=== PATIENT | female | born 1965 | race Caucasian/White ===

== ENCOUNTER 2022-08-20 16:20 | Outpatient (OUT) | payer MEDICAID, SELFPAY ==
--- NOTE | 2022-08-20 | XR_ITS ---
The [address] [address] Patient Name: MARCELINO IRENE MRN: [id number] date: 1965 Sex: F Assigned Patient Location: LAB Current Patient Location: Accession/Order Number: [id number] Exam Date: 08/20/2022 17:04 Report Date: 08/21/2022 18:55 At the request of: CHRISTIANA ORLANDO Procedure: XR shoulder LU min 2V EXAMINATION: XR shoulder LU min 2V HISTORY: MYALGIA ; bilateral shoulder pain, chronic COMPARISON: No relevant comparison available. FINDINGS: RIGHT FINDINGS: BONES: Skin surface marker projects over the acromioclavicular joint there are mild degenerative changes. Unremarkable glenohumeral joint. No fracture, dislocation, bone lesion. SOFT TISSUES: No visible soft tissue swelling. OTHER: Negative. LEFT FINDINGS: BONES: Skin surface marker projects over the acromioclavicular joint where there are mild degenerative changes. Unremarkable glenohumeral joint. No fracture, dislocation, or bone lesion. SOFT TISSUES: No visible soft tissue swelling. OTHER: Negative. XR/XR shoulder LU min 2V IMPRESSION: RIGHT CONCLUSION: Mild degenerative changes of acromioclavicular joint. LEFT CONCLUSION: Mild degenerative changes of the acromial clavicular joint. Electronically authenticated by: SUKUMAR CABALLERO Date: 08/21/2022 18:55
[2022-08-20 17:09] LABS: Erythrocyte Sedimentation Rate 22 mm/hr (<=30)
[2022-08-22 06:09] LABS: C-Reactive Protein, Cardiac 0.72 mg/L (0.00-3.00)
[2022-08-24 14:08] LABS: EBV Ab VCA, IgG >600.0 U/mL (0.0-17.9); EBV Ab VCA, IgM <36.0 U/mL (0.0-35.9); EBV Nuclear Antigen Ab, IgG >600.0 U/mL (0.0-17.9)
== END 2022-08-20 16:21 | disposition home or self-care (01) ==
PROVIDERS: PCP Specialist; Visit Provider Psychiatry & Neurology Neurology
DX: R53.83 Other fatigue (principal); M79.10 Myalgia, unspecified site; R11.0 Nausea; M35.9 Systemic involvement of connective tissue, unspecified; G31.84 Mild cognitive impairment of uncertain or unknown etiology; F03.90 Unspecified dementia, unspecified severity, without behavioral disturbance, psychotic disturbance, mood disturbance, and anxiety; R41.89 Other symptoms and signs involving cognitive functions and awareness; R41.3 Other amnesia; M41.30 Thoracogenic scoliosis, site unspecified; M31.6 Other giant cell arteritis; E78.49 Other hyperlipidemia; M25.512 Pain in left shoulder; M25.511 Pain in right shoulder
CPT/HCPCS: 36415; 73030; 85652; 86140; 86664; 86665

== ENCOUNTER 2023-05-28 13:34 | Outpatient (OUT) | payer MEDICARE, MEDICAID, SELFPAY ==
--- NOTE | 2023-05-28 13:38 | CT_ITS ---
The [address] [address] Patient Name: MARCELINO IRENE MRN: [id number] date: 1965 Sex: F Assigned Patient Location: CT Current Patient Location: Accession/Order Number: [id number] Exam Date: 05/28/2023 13:50 Report Date: 05/30/2023 04:28 At the request of: HIEN HENSLEY Procedure: CT lung screening low-dose EXAMINATION: CT lung screening low-dose HISTORY: Nicotine Dependence F17.210 COMPARISON: No relevant comparison available. TECHNIQUE: Axial, Coronal, and Sagittal images were created without the administration of IV contrast material. Dose reduction techniques were achieved by using automated exposure control and/or adjustment of mA and/or kV according to patient size and/or use of iterative reconstruction technique. FINDINGS: LUNGS: Mild emphysematous changes. Multiple 3-4 mm nodules scattered within the lungs, some calcified and some noncalcified, but favoring granulomas. No acute infiltrates. PLEURA: No mass, effusion, or pneumothorax. VASCULATURE: No abnormality. JUAN: Calcified lymph nodes favoring chronic granulomatous disease. MEDIASTINUM: Calcified lymph nodes. CARDIAC: No enlargement, pericardial thickening, or pericardial effusion. AORTA: No aneurysm or dissection. CHEST WALL: No mass or axillary adenopathy BONES: No bone lesion or fracture. LIMITED ABDOMEN: No suspicious findings. Limited images of the upper abdomen. OTHER: Negative. CT/CT lung screening low-dose IMPRESSION: 1. Lung-RADS 2- Benign Appearance or Behavior. Nodules with a very low likelihood of becoming a clinically active cancer due to size or lack of growth. Follow-up CT Chest in 1 year. Electronically authenticated by: SUKUMAR CABALLERO Date: 05/30/2023 04:28
--- NOTE | 2023-05-28 13:46 | MM_ITS ---
Patient Name: MARCELINO IRENE MR#: [id number] : 1965 Exam Date: 05/28/2023 Ordering Doctor: DR. HIEN HENSLEY . RADIOLOGY REPORT PROCEDURE: MM TOMOSYNTHESIS SCREENING BI COMPARISON: MG MAMM SCREEN 3D LU CAD, 04/26/2020. MG MAMM LU DIAG W CAD DIG, 01/08/2009. INDICATIONS: Screening Calculator Name NCI Breast Cancer Risk Assessment Tool 5 Year Breast Cancer Risk 1.20% Lifetime Breast Cancer Risk 6.70% Personal Breast Cancer No Personal Ovarian Cancer No Treatments None Family Cancers Brother with rabdomyosarcoma cancer at age ~45. LOCATION: [facility] BREAST COMPOSITION: The breasts are heterogeneously dense,which may obscure small masses. FINDINGS: DIAGNOSTIC CATEGORY 1--NEGATIVE. RIGHT BREAST: No significant suspicious finding. No significant change has occurred. LEFT BREAST: No significant suspicious finding. No significant change has occurred. RECOMMENDATIONS: ROUTINE MAMMOGRAM AND CLINICAL EVALUATION IN 12 MONTHS. PLEASE NOTE: A NORMAL MAMMOGRAM DOES NOT EXCLUDE THE POSSIBILITY OF BREAST CANCER. A CLINICALLY SUSPICIOUS PALPABLE LUMP SHOULD BE BIOPSIED. Dictated by: Pb Zhou M.D. on 05/28/2023 at 15:34 Approved by: Pb Zhou M.D. on 05/28/2023 at 15:44
== END 2023-05-28 13:35 | disposition home or self-care (01) ==
LOC: CT 13:34
PROVIDERS: PCP Family Medicine; Visit Provider Family Medicine
DX: Z12.31 Encounter for screening mammogram for malignant neoplasm of breast (principal); F17.210 Nicotine dependence, cigarettes, uncomplicated; Z80.8 Family history of malignant neoplasm of other organs or systems
CPT/HCPCS: 71271; 77063; 77067

== ENCOUNTER 2023-06-01 14:58 | Outpatient (OUT) | payer MEDICARE, MEDICAID, SELFPAY ==
--- NOTE | 2023-06-01 15:01 | MR_ITS ---
[address] [address] Patient Name: MARCELINO IRENE MRN: [id number] date: 1965 Sex: F Assigned Patient Location: MRI Current Patient Location: Accession/Order Number: [id number] Exam Date: 06/01/2023 15:10 Report Date: 06/02/2023 06:53 At the request of: CHRISTIANA ORLANDO Procedure: MR shoulder LT wo con EXAMINATION: MR shoulder LT wo con HISTORY: traumatic incomplete tear of rotator cuff S46.012D ; chronic left shoulder pain and left hand weakness COMPARISON: No relevant comparison available. TECHNIQUE: A variety of imaging planes and parameters were utilized for visualization of suspected pathology. Imaging was performed without or with contrast as indicated by examination type. FINDINGS: ROTATOR CUFF REGION CUFF TENDONS: A partial thickness tear involves the supraspinatus tendon. 13 x 6 x 9 mm cyst/fluid collection adjacent versus within the supraspinatus muscle at the musculotendinous junction. CUFF MUSCLES: Normal appearing muscles. DELTOID: Normal. No significant atrophy or tear. LONG BICEPS TENDON: Normal. No abnormal signal, attrition, or tear. LABRUM/BICEPS ANCHOR SUPERIOR: Suspected tear of the anterior superior labrum. INFERIOR: No visible tear or attrition. POSTERIOR: No posterior labrum abnormality. CAPSULE Normal. No visible capsular laxity or thickening. AC JOINT REGION AC JOINT: Moderate osteoarthropathy with mild-moderate narrowing of the underlying coracoacromial arch. AC LIGAMENTS: Normal acromioclavicular ligament. CC LIGAMENTS: Normal coracoclavicular ligaments. ACROMION: Normal horizontal (Type I) configuration. SUBACROMIAL BURSA: No significant effusion. HYALINE CARTILAGE: Normal. No visible cartilage narrowing or focal defect. OTHER BONES: Normal proximal humerus, glenoid, and coracoid. OTHER OBSERVATIONS: Negative. No other significant findings or glenohumeral effusion. MR/MR shoulder LT wo con IMPRESSION: 1. Partial tear the supraspinatus tendon. 2. 13 mm cystic fluid collection which appears to be within the supraspinatus muscle, but may be adjacent and causing mass effect, at the musculotendinous junction. 3. Suspected tear of the anterior superior labrum. Electronically authenticated by: SUKUMAR Hudson: 06/02/2023 06:53
== END 2023-06-01 14:59 | disposition home or self-care (01) ==
LOC: MRI 14:59
PROVIDERS: PCP Family Medicine; Visit Provider Psychiatry & Neurology Neurology
DX: S46.012D Strain of muscle(s) and tendon(s) of the rotator cuff of left shoulder, subsequent encounter (principal)
CPT/HCPCS: 73221

== ENCOUNTER 2023-10-25 17:33 | Emergency (ER) | payer MEDICARE, MEDICAID, SELFPAY ==
[2023-10-25 17:43] VITALS: BP 133/81; PULSE 92; TEMP 36.9; O2SAT 96; BMI 22.2
[2023-10-25 18:48] VITALS: BP 121/73; PULSE 86; TEMP 36.8; O2SAT 98
== END 2023-10-25 20:04 | disposition left against medical advice (07) ==
PROVIDERS: Emergency Provider Emergency Medicine; PCP Family Medicine
DX: Z53.21 Procedure and treatment not carried out due to patient leaving prior to being seen by health care provider (principal)

== ENCOUNTER 2024-05-16 15:29 | Outpatient (RCR) | payer MEDICARE, MEDICAID, SELFPAY | END 2024-06-10 15:08 | disposition home or self-care (01) | LOC: PT 15:29 | PROVIDERS: PCP Family Medicine | DX: M75.02 Adhesive capsulitis of left shoulder (principal); M79.602 Pain in left arm; M54.2 Cervicalgia | CPT/HCPCS: 97110; 97140; 97161 ==

== ENCOUNTER 2024-06-15 15:00 | Outpatient (OUT) | payer MEDICARE, MEDICAID, SELFPAY ==
--- NOTE | 2024-06-15 15:07 | XR_ITS ---
[address] [address] Patient Name: MARCELINO IRENE MRN: [id number] date: 1965 Sex: F Assigned Patient Location: [facility] Current Patient Location: [facility] Accession/Order Number: [id number] Exam Date: 06/15/2024 15:54 Report Date: 06/15/2024 15:54 At the request of: NELSON ZHU Procedure: XR chest 2V Chest 2 views CLINICAL HISTORY: Fatigue, Preprocedural Examination COMPARISON: Chest 03/27/2020 FINDINGS: Heart normal size. Lungs are clear. No free air. XR/XR chest 2V IMPRESSION: NO ACUTE CARDIOPULMONARY ABNORMALITY. Impression dictated by: Joshua Laguna Jr., D.OJustice 06/15/2024 3:54 PM Dictation Location: [place] [address] Electronically authenticated by: [id number] Y Date: 06/15/2024 15:54
== END 2024-06-15 15:01 | disposition home or self-care (01) ==
LOC: RAD 15:02
PROVIDERS: PCP Family Medicine; Visit Provider Nurse Practitioner
DX: Z01.818 Encounter for other preprocedural examination (principal); R53.83 Other fatigue
CPT/HCPCS: 71046

== ENCOUNTER 2024-08-17 13:25 | Outpatient (OUT) | payer MEDICARE, MEDICAID, SELFPAY ==
--- NOTE | 2024-08-17 14:00 | XR_ITS ---
[place] [id number] Patient Name: MARCELINO IRENE MRN: [id number] date: 1965 Sex: F Assigned Patient Location: LAB Current Patient Location: LAB Accession/Order Number: [id number] Exam Date: 08/17/2024 22:20 Report Date: 08/17/2024 22:21 At the request of: NELSON ZHU Procedure: XR chest 2V XR chest 2V 08/17/2024 2:11 PM SIGNS AND SYMPTOMS: ^Cough, Fatigue, Abnormal Labs PROTOCOL: Frontal and lateral radiographs of the chest COMPARISON: 06/15/2024 FINDINGS: The trachea is midline. The heart and mediastinal structures are within normal limits. The lung parenchyma is clear. The bony thorax is intact. XR/XR chest 2V IMPRESSION: No acute cardiopulmonary pathology. Impression dictated by: Raymon Damon M.D. 08/17/2024 10:21 PM Dictation Location: [facility] Electronically authenticated by: [id number] Y Date: 08/17/2024 22:21
[2024-08-17 14:03] LABS: Hematocrit 36.9 % (36.0-48.0); Hemoglobin 12.1 g/dL (12.0-16.0); Immature Granulocytes Abs Auto 0.03 10^3/uL (0.00-0.03); Immature Granulocytes Pct Auto 0.3 % (0.0-0.5); Lymphocytes Absolute Auto 2.8 10^3/uL (1.2-3.8); Mean Corpuscular HGB Conc 32.8 g/dL (29.9-35.2); Mean Corpuscular Hemoglobin 31.0 pg (26.7-34.0); Mean Corpuscular Volume 94.6 fL (81.0-99.0); Platelet Count 416 10^3/uL (150-450); Red Blood Count 3.90 10^6/uL (4.20-5.40); White Blood Count 9.9 10^3/uL (4.0-11.0)
[2024-08-17 14:42] LABS: Alanine Aminotransferase 20 U/L (14-59); Albumin Globulin Ratio 1.2; Albumin Level 3.4 g/dL (3.4-5.0); Alkaline Phosphatase 67 U/L (46-116); Anion Gap 15.1; Aspartate Amino Transferase 13 U/L (15-37); Blood Urea Nitrogen 18.0 mg/dL (7.0-18.0); Calcium 8.7 mg/dL (8.5-10.1); Carbon Dioxide 23.5 mmol/L (21.0-32.0); Chloride 111 mmol/L (98-107); Estimated GFR (African America >60 (>=60 mL/min/1.73m^2); Estimated GFR (Non-African Ame >60 (>=60 mL/min/1.73m^2); Globulin 2.9 g/dL; Glucose 91 mg/dL (74-106); Potassium 3.6 mmol/L (3.5-5.1); Sodium 146 mmol/L (136-145); Total Protein 6.3 g/dL (6.4-8.2)
[2024-08-17 15:13] LABS: Iron 57.0 ug/dL (50.0-170.0); Percent Iron Saturation 15.8 %; Total Iron Binding Capacity 361.0 ug/dL (250.0-450.0)
== END 2024-08-17 13:26 | disposition home or self-care (01) ==
PROVIDERS: PCP Family Medicine; Visit Provider Nurse Practitioner
DX: R53.83 Other fatigue (principal); R79.0 Abnormal level of blood mineral; R79.89 Other specified abnormal findings of blood chemistry; D64.9 Anemia, unspecified
CPT/HCPCS: 36415; 71046; 80053; 82728; 83540; 83550; 85025

== ENCOUNTER 2024-11-06 14:40 | Outpatient (OUT) | payer MEDICARE, MEDICAID, SELFPAY ==
--- OUTSIDE RECORDS SUMMARY | 2024-10-26 14:50 | XMS_ITS ---
Author Name Auto Generated Organization OHIP Support Name Relationship Address Phone JAMIL BEAL Next [place] [phone] JAY, [place] [address] + [phone] EMIGDIO, JAMIL Next of [facility], [place] [phone] JAY, [place] [address] + [phone] DISABLED Next of Kin Unknown Unavailable EMIGDIO, JAMIL Next of [facility], [place] [phone] EMIGDIO, JAMIL Next of [facility], [place] [phone] JAY, IRMA Next of [facility] [place] [address] + ~[phone] EMIGDIO, JAMIL Next of Kin [place] [phone] JAY, [place] [address] + ~[phone] DISABLED Next of Kin Unknown Unavailable EMIGDIO, JAMIL Next of Kin [place] [phone] DISABLED Next of Kin Unknown Unavailable EMIGDIO, JAMIL Next [place] [phone] DISABLED Next of Kin Unknown Unavailable EMIGDIO, JAMIL Next of Kin [place] [phone] DISABLED Next of Kin Unknown Unavailable EMIGDIO, JAMIL Next of [place] [phone] EMIGDIO, JAMIL Next [place] [phone] JAY, IRMA Next of Kin [facility] [place] [address] + [phone] EMIGDIO, JAMIL Next of Kin [place] [phone] JAY, IRMA Next of Kin [facility] [place] [address] + [phone] DISABLED Next of Kin Unknown Unavailable EMIGDIO, JAMIL Next of Kin [place] [phone] EMIGDIO, JAMIL Next of [place] [phone] JAY, IRMA Next of Kin [facility] [place] [address] + ~[phone] DISABLED Next of Kin Unknown Unavailable EMIGDIO, JAMIL Next of [place] [phone] DISABLED Next of Kin Unknown Unavailable EMIGDIO, JAMIL Next of Kin [place] [phone] EMIGDIO, JAMIL Next of [place] [phone] JAY, IRMA Next of Kin [facility] [place] [address] + ~[phone] EMIGDIO, JAMIL Next of Kin [place] [phone] JAY, IRMA Next of [facility] [place] [address] + ~[phone] IVY, KULWANT Next of Kin [address] [facility] [place] [address] + EMIGDIO, JAMIL Next of Kin [place] [phone] JAY, IRMA Next of [facility] [place] [address] + ~[phone] IVY, KULWANT Next of Kin [address] [facility] [place] [address] + EMIGDIO, JAMIL Next of Kin [place] [phone] JAY, IRMA Next of [facility] [place] [address] + ~[phone] IVY, KULWANT Next of [facility] [place] [address] + JAMIL BEAL Next of [place] [phone] JAYIRMA JOY Next of Henry [facility] [place] [address] + ~[phone] KULWANT IVY Next of Henry [address] [place] [address], [place] [address] + JAMIL BEAL Next of Henry [place] [phone] JAYIRMA JOY Next of Henry [facility] [place] [address] + ~[phone] DISABLED Next of Kin Unknown Unavailable JAMIL BEAL Next of Henry [place] [phone] IRMA [place] [address] [phone] Care Team Providers Care Electrical Systems Drafter Name Role Phone ROBYN HERNANDEZ Attending Unavailable ROBYN HERNANDEZ Attending Unavailable ROBYN HERNANDEZ Attending Unavailable GENERIC PROVIDER, NO ASSIGNED PCP Primary Care Unavailable ROBYN HERNANDEZ Attending Unavailable ROBYN HERNANDEZ Referring Unavailable ROBYN HERNANDEZ Attending Unavailable GENERIC PROVIDER, NO ASSIGNED PCP Primary Care Unavailable ROBYN HERNANDEZ Referring Unavailable GENERIC PROVIDER, NO ASSIGNED PCP Primary Care Unavailable Miguel Meyer Admitting Unavailable Miguel Meyer Attending Unavailable Feliz, Jennifer L Admitting Unavailable Feliz, Jennifer L Attending Unavailable Feliz, Jennifer L Attending Unavailable Feliz, Jennifer L Attending Unavailable Feliz, Jennifer L Attending Unavailable Feliz, Jennifer L Attending Unavailable Feliz, Jennifer L Attending Unavailable Feliz, Jennifer L Attending Unavailable Feliz, Jennifer L Attending Unavailable Feliz, Jennifer L Admitting Unavailable Feliz, Jennifer Stevenson Attending Unavailable RUBINA MENESES Attending Unavailab CHRISTIANA Prabhakar Attending Unavailable CHRISTIANA JASMINE Referring Unavailable CHRISTIANA JASMINE Attending Unavailable RUBINA MENESES Attending Unavailab RUBINA Peralta Referring Unavailab CHRISTIANA Prabhakar Attending Unavailable CHRISTIANA JASMINE Attending Unavailable RUBINA MENESES Attending Unavailab CHRISTIANA Prabhakar Attending Unavailable CHRISTIANA JASMINE Attending Unavailable RUBINA MENESES Attending Unavailab le PROBLEMS DATE TYPE CONDITION / CODE ATTENDING STATUS JESUS Rick 08/14/2024 Admitting Diagnosis Follow-up / FREETEXT() MARYROBYN [facility] 06/12/2024 Admitting Diagnosis Encounter for other preprocedural examination / Z01.818(ICD-10) [facility] Amb[facility] 05/08/2024 Admitting Diagnosis Adhesive capsulitis of left shoulder / M75.02(ICD-10) ARIK [facility] Amb[facility] 11/15/2023 Admitting Diagnosis Incomplete rotator cuff tear or rupture of left shoulder, not specified as traumatic / M75.112(ICD-10) [facility] Ambulatory PROCEDURES No Procedure Records Found RESULTS FAMILY MEDICINE OFFICE/CLINI C NOTE Observed: 10/13/2024 3:20 PM Status: F Source: [facility] Family Medicine Office/Clini c Note HPI Staff Miroslava is a 59 year old female presenting with abdominal pain Onset: started 3 days ago Cologaurd last summer Restarted iron 4 days ago Now her stomach does not hurt any more History of Present Illness pt presents today for abdominal pain. but it is now better Review of Systems PHQ Score Initial Depression Screen Score: 0 SCORE Physical Exam Vitals & Measurements T: 36.4 ???C(Temporal Artery) HR: 92(Peripheral) RR: 18 BP: 96/86 SpO2: 97% HT: 68 in HT: 172.6 cm WT: 151.237 lb WT: 68.6 kg BMI: 23.03 General: alert, no acute distress ENMT: oral mucosa moist, no pharyngeal erythema or exudate Cardiovascular: regular rate and rhythm, normal peripheral perfusion Respiratory: Lungs CTA, respirations non labored Extremities: no deformity, no trauma Neurological: oriented x 4, LOC appropriate for age, CN II-XII intact, motor strength equal & normal bilaterally, speech normal Assessment/Plan 1. Abdominal pain (R10.9: Unspecified abdominal pain) pt started taking iron 4 days ago and started having abdominal pain 3 days ago Ordered: mupirocin topical, 1 jodee, Topical, TID, 22 gram, Refill(s) 0, [employer] #72, 172.6, cm, 10/13/24 15:33:00 EDT, Height/Length Dosing, 68.6, kg, 10/13/24 15:33:00 EDT, Weight Dosing 2. 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 Jasmine. thye keep increasing the dose Ordered: mupirocin topical, 1 jodee, Topical, TID, 22 gram, Refill(s) 0, [employer] #72, 172.6, cm, 10/13/24 15:33:00 EDT, Height/Length Dosing, 68.6, kg, 10/13/24 15:33:00 EDT, Weight Dosing 3. Body mass index [BMI] 23.0-23.9, adult (Z68.23: Body mass index [BMI] 23.0- 23.9, adult) BMI educaiton 4. Smoker (F17.200: Nicotine dependence, unspecified, uncomplicated) consider not smoking 5. Fatigue (R53.83: Other fatigue) pt c/o severe fatigue. just had labs done at [facility]. will obtain those records. pt is thinking she may want a second opinion with neuro at [facility]. 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 Medications acyclovir 400 mg Tab, 400 mg= 1 tab(s), Oral, BID Adderall 30 mg oral tablet, 30 mg= 1 tab(s), Oral, BID Advair Diskus 500 mcg-50 mcg inhalation powder, See Instructions Albuterol (Eqv-ProAir HFA) 90 mcg/inh inhalation aerosol, Inhalation, q6hr baclofen 10 mg Tab, 10 mg= 1 tab(s), Oral, TID Biotene, Oral, BID Cymbalta 60 mg Cap-DR, 60 mg, Oral, BID diclofenac potassium 25 mg oral tablet, Oral, BID dicyclomine 10 mg Cap, 10 mg= 1 cap(s), Oral, QID ferrous sulfate 325 mg Tab, 325 mg= 1 tab(s), Oral, BID, 5 refills FLUoxetine 20 mg Cap, 40 mg= 2 cap(s), Oral, Daily lansoprazole 30 mg Cap-DR, 30 mg= 1 cap(s), Oral, Daily LORazepam 0.5 mg Tab, 0.5 mg= 1 tab(s), Oral, BID multivitamin mupirocin Top 2% Oint, 1 jodee, Topical, TID Nurtec ODT 75 mg oral tablet, disintegrating, See Instructions OTC iron +C promethazine 25 mg Tab, See Instructions thymamine TraMADol (Eqv-Ultram ER) 300 mg/24 hours oral tablet, extended release, 300 mg= 1 tab(s), Oral, Daily vitamin b, 0 Allergies Moderna COVID-19 (6m-5y) Bivalent Booster Vaccine PF (Unknown) flu vaccines (Unknown) Dilaudid (Unknown) codeine (Unknown) celecoxib (Unknown) sulfa drugs (Unknown) Social History Alcohol Never., 08/12/2024 Substance Abuse Never., 08/12/2024 Tobacco 4 or less cigarettes(less than 1/4 pack)/day in last 30 days Tobacco Use:. Former vaping or e-cigarette use Smokeless Tobacco Use:. Cigarettes, Started age 19.0 Years. Ready to change: Yes. Household tobacco concerns: Yes. Yes, 10/13/2024 Family History Dementia: Mother. Hypertension: Mother. Immunizations Vaccine Date Status SARS-CoV-2 (COVID-19) mRNA-1273 vaccine 03/20/2020 Recorded SARS-CoV-2 (COVID-19) mRNA-1273 vaccine 02/21/2020 Recorded measles/mumps/rubella virus vaccine 09/06/1996 Recorded Td(adult) unspecified formulation 08/28/1996 Recorded Result Comment: Electronical ly Signed By: Jennifer Heath.shasha\Date and Time Signed: 10/13/24 15:49 EDT PAP Collected: 08/25/2024 3:16 PM Status: F Source: [facility] TYPE CODE TESTS RESULT OUT OF RANGE REFERENCE UNITS LAB CD:[id number] ([facility]) HPV Aptima Negative Unknown Negative Result Comment: This nucleic acid amplification test detects fourteen high-risk HPV types (16,18,31,33,35,39,45,51,52,56,58,59,66,68) without differentiation. Performed at: [facility] [address] [facility], [place] [id number] MD Puneet YoungPerformed at: =G [facility] [address] [facility], [place] [id number] MD Puneet Young LAB CD:[id number] ([facility]) PAP Note Unknown Result Comment: TESTS RESUL T FLAG UNITS REF RANGE LAB Clinician Provided Cytology Information Source.............Endocervix No. of containers..01 ThinPrep Vial DIAGNOSIS: 01 NEGATIVE FOR INTRAEPITHELIAL LESION OR MALIGNANCY. Specimen adequacy: 01 Satisfactory for evaluation. Endocervical and/or squamous metaplastic cells (endocervical component) are present. Performed by: Elliot Travis, Circular Saw Operator (ASCP) . 01 Note: Note 01 The Pap smear is a screening test designed to aid in the detection of premalignant and malignant conditions of the uterine cervix. It is not a diagnostic procedure and should not be used as the sole means of detecting cervical cancer. Both false-positive and false-negative reports do occur. Test Methodology: Note 01 This liquid based ThinPrep(R) pap test was screened with the use of an image guided system. HPV Genotype Reflex Note 01 Criteria not met, HPV Genotype not performed. FLAG LEGEND: L-Low Normal,H-High Normal,LL-Alert Low,HH-Alert High <-Panic Low,>-Panic High,A-Abnormal,AA-Critical Abnormal Performed at: [address] [facility] [address] [address] Hannah Teixeira MD, LAB CD:[id number] ([facility]) Gynecological Body Site ENDOCERVIX Normal Performed By: #### [id number] #### [facility] [address] [place] [address] FAMILY MEDICINE OFFICE/CLINI C NOTE Observed: 08/25/2024 1:40 PM Status: F Source: [facility] Family Medicine Office/Clini c Note HPI Staff Miroslava is a 59 year old female presenting with Woman check up: Last pap: doesn't know Results of lap pap: NORMAL Where was it done: hx: # of pregnancies... 3 abortions... 1 live births... 1 living children...0 menstrual cycle (normal,heavy,ect): History of STD: no Do you want tested for STD today: no Vaginal discharge, odor, itching: no Self breast exam at home? Hx of breast, cervical or uterine cancer in the family: Hysterectomy no Mammogram she has to call back Refills needed none History of Present Illness pt presents today for well woman visit Review of Systems PHQ Score Initial Depression Screen Score: 0 SCORE Physical Exam Vitals & Measurements T: 36.4 ???C(Temporal Artery) HR: 84(Peripheral) RR: 20 BP: 108/68 SpO2: 97% HT: 172.6 cm HT: 68 in WT: 70.3 kg WT: 154.985 lb BMI: 23.6 General: Well developed, well nourished, in no acute distress Neck: Neck supple. No masses or palpable cervical nodes. Trachea midline. Thyroid without nodules, masses, tenderness, or enlargement Breast: No mass, nodule, discharge, or erythema bilaterally, and no axillary lymphadenopathy Lungs: Normal respiratory effort and clear to auscultation Cardio: Regular rate and rhythm, normal S1 and S2, no murmur, no rub Abdomen: Soft, non-distended, non-tender, normal bowel sounds x4 Gyno: normal external genitalia. Urethra no discharge. Vagina normal without lesions, no vaginal discharge. Cervix normal, without lesions. Uterus normal. No adnexal masses. Pap obtained Neurologic: Grossly normal Skin: Falkner, moist, no tenting Lymph Nodes: No cervical adenopathy, nodes normal Mental Status: Alert and oriented x3. Normal mood and affect Assessment/Plan 1. Encounter for annual routine gynecological examination (Z01.419: Encounter for gynecological examination (general) (routine) without abnormal findings) pt presents today for well woman visit. BSE discussed. pt to schedule mammogram at [facility]. dexa scan ordered. all questions answered. RTC as needed Ordered: Obtaining Pap Smear Q0091 Pelvic and Breast Exam G0101 2. Cervical cancer screening (Z12.4: Encounter for screening for malignant neoplasm of cervix) pap obtained Ordered: Obtaining Pap Smear Q0091 Pelvic and Breast Exam G0101 3. Post-menopause (Z78.0: Asymptomatic menopausal state) will order dexa scan. Ordered: BD Bone Density DEXA 4. Body mass index [BMI] 23.0-23.9, adult (Z68.23: Body mass index [BMI] 23.0- 23.9, adult) BMI education Ordered: BD Bone Density DEXA 5. Smoker (F17.200: Nicotine dependence, unspecified, uncomplicated) consider not smoking Ordered: BD Bone Density DEXA Follow-up No qualifying data available Problem List/Past Medical History Ongoing Acute stress disorder ADHD Body mass index [BMI] 23.0-23.9, adult Breast cancer screening other than mammogram Cervical cancer screening Cigarette nicotine dependence with nicotine-induced disorder Colon cancer screening Cough Degeneration of cervical intervertebral disc Depression with anxiety Derangement of knee Diverticulitis of large intestine EBV (Will-Horne virus) Encounter for annual routine gynecological examination Fatigue GERD (gastroesophageal reflux disease) High serum ferritin Left shoulder pain Low ferritin Low hemoglobin Major depressive disorder, recurrent episode, mild Migraine Neck pain Physical exam Post-menopause Pre-op exam Rib fractures Sciatica Screening for hyperlipidemia Skin infection Supraspinatus tendon rupture Well woman exam Historical BMI 24.0-24.9, adult BMI 25.0-25.9,adult Breast cancer screening Procedure/Surgical History Tonsillectomy and adenoidectomy (06/2001), Surgery. Medications acyclovir 400 mg Tab, 400 mg= 1 tab(s), Oral, BID Adderall 30 mg oral tablet, 30 mg= 1 tab(s), Oral, BID Advair Diskus 500 mcg-50 mcg inhalation powder, See Instructions Albuterol (Eqv-ProAir HFA) 90 mcg/inh inhalation aerosol, Inhalation, q6hr baclofen 10 mg Tab, 10 mg= 1 tab(s), Oral, TID Biotene, Oral, BID Cymbalta 60 mg Cap-DR, 60 mg, Oral, BID diclofenac potassium 25 mg oral tablet, Oral, BID dicyclomine 10 mg Cap, 10 mg= 1 cap(s), Oral, QID ferrous sulfate 325 mg Tab, 325 mg= 1 tab(s), Oral, BID, 5 refills FLUoxetine 20 mg Cap, 40 mg= 2 cap(s), Oral, Daily lansoprazole 30 mg Cap-DR, 30 mg= 1 cap(s), Oral, Daily LORazepam 0.5 mg Tab, 0.5 mg= 1 tab(s), Oral, BID multivitamin Nurtec ODT 75 mg oral tablet, disintegrating, See Instructions OTC iron +C promethazine 25 mg Tab, See Instructions thymamine TraMADol (Eqv-Ultram ER) 300 mg/24 hours oral tablet, extended release, 300 mg= 1 tab(s), Oral, Daily vitamin b, 0 Allergies Moderna COVID-19 (6m-5y) Bivalent Booster Vaccine PF (Unknown) flu vaccines (Unknown) Dilaudid (Unknown) codeine (Unknown) celecoxib (Unknown) sulfa drugs (Unknown) Social History Alcohol Never., 08/12/2024 Substance Abuse Never., 08/12/2024 Tobacco 5-9 cigarettes (between 1/4 to 1/2 pack)/day in last 30 days Tobacco Use:. Former vaping or e-cigarette use Smokeless Tobacco Use:. Cigarettes, Started age 19.0 Years. Ready to change: Yes. Household tobacco concerns: Yes. Yes, 08/25/2024 Family History Dementia: Mother. Hypertension: Mother. Immunizations Vaccine Date Status SARS-CoV-2 (COVID-19) mRNA-1273 vaccine 03/20/2020 Recorded SARS-CoV-2 (COVID-19) mRNA-1273 vaccine 02/21/2020 Recorded measles/mumps/rubella virus vaccine 09/06/1996 Recorded Td(adult) unspecified formulation 08/28/1996 Recorded Result Comment: Electronical ly Signed By: Jennifer Heath\.br\Date and Time Signed: 08/25/24 14:26 EDT AMBULATORY VISIT SUMMARY Observed: 08/25 1:40 PM Status: F Source: [facility] Ambulatory Visit Summary MIROSLAVA IRENE :1965 Visit Date:08/25/2024 Ambulatory Visit Instructions Your Diagnosis Encounter for annual routine gynecological examination Cervical cancer screening Post-menopause Body mass index [BMI] 23.0-23.9, adult Smoker Tests Performed BD Bone Density DEXA -- Results Pending -- Please visit your patient portal for your results or contact your primary care physician. Your Care Team Attending Physician - Jennifer Heath Primary Care Physician - Jennifer Heath This Is Your Medications List Misc Prescription (vitamin b) Non-Formulary Medication (OTC iron +C) Non-Formulary Medication (multivitamin) Non-Formulary Medication (thymamine) acyclovir (acyclovir 400 mg Tab) albuterol (Albuterol (Eqv-ProAir HFA) 90 mcg/inh inhalation aerosol) amphetamine-dextroamphetamine (Adderall 30 mg oral tablet) baclofen (baclofen 10 mg Tab) diclofenac (diclofenac potassium 25 mg oral tablet) dicyclomine (dicyclomine 10 mg Cap) duloxetine (Cymbalta 60 mg Cap-DR) ferrous sulfate (ferrous sulfate 325 mg Tab) fluoride topical (Biotene) fluoxetine (FLUoxetine 20 mg Cap) fluticasone-salmeterol (Advair Diskus 500 mcg-50 mcg inhalation powder) lansoprazole (lansoprazole 30 mg Cap-DR) lorazepam (LORazepam 0.5 mg Tab) promethazine (promethazine 25 mg Tab) rimegepant (Nurtec ODT 75 mg oral tablet, disintegrating) tramadol (TraMADol (Eqv-Ultram ER) 300 mg/24 hours oral tablet, extended release) Procedures Performed Tonsillectomy and adenoidectomy (06/2001), Surgery. Discharge Vitals Temperature (Temporal Artery) 36.4 ???C Heart Rate (Peripheral) 84 Respiratory Rate 20 Blood Pressure 108/68 Height 172.6 cm Height 68 in Weight 70.3 kg Weight 154.985 lb BMI 23.6 What to do next Scheduled Follow-Up Appointments Wednesday 2:30 PM EDT With: Where: [facility] Wednesday 2:20 PM EDT With: Jennifer Heath Where: [address] [address] 2:30 PM EDT With: Where: [address] [address]- Medications What How Much When Why Instructions Unchanged acyclovir (acyclovir 400 mg Tab) 1 Tablets By Mouth 2 times a day Unchanged albuterol (Albuterol (Eqv-ProAir HFA) 90 mcg/ inh inhalation aerosol) Inhalation Every 6 hours Unchanged amphetamine-dextroamphetamine (Adderall 30 mg oral tablet) 1 Tablets By Mouth 2 times a day Unchanged baclofen (baclofen 10 mg Tab) 1 Tablets By Mouth 3 times a day as needed Unchanged diclofenac (diclofenac potassium 25 mg oral tablet) By Mouth 2 times a day Unchanged dicyclomine (dicyclomine 10 mg Cap) 1 Capsules By Mouth 4 times a day as needed Unchanged duloxetine (Cymbalta 60 mg Pritesh-DR) 60 Milligram By Mouth 2 times a day Unchanged ferrous sulfate (ferrous sulfate 325 mg Tab) 1 Tablets By Mouth 2 times a day Pre-op exam Fatigue Low hemoglobin Screening for hyperlipidemia Supraspinatus tendon rupture Left shoulder pain Major depressive disorder, recurrent episode, mild BMI 24.0-24.9, adult Unchanged fluoride topical (Biotene) By Mouth 2 times a day Unchanged fluoxetine (FLUoxetine 20 mg Cap) 2 Capsules By Mouth Every day Unchanged fluticasone-salmeterol (Advair Diskus 500 mcg-50 mcg inhalation powder) See instructions use twice a day Unchanged lansoprazole (lansoprazole 30 mg Cap-DR) 1 Capsules By Mouth Every day Unchanged lorazepam (LORazepam 0.5 mg Tab) 1 Tablets By Mouth 2 times a day as needed Unchanged Misc Prescription (vitamin b) 0 Unchanged Non-Formulary Medication (multivitamin) Unchanged Non-Formulary Medication (OTC iron +C) Unchanged Non-Formulary Medication (thymamine) Unchanged promethazine (promethazine 25 mg Tab) See instructions use prn when active migraine Unchanged rimegepant (Nurtec ODT 75 mg oral tablet, disintegrating) See instructions Use as directed allow tablet to dissolve on tongue Unchanged tramadol (TraMADol (Eqv-Ultram ER) 300 mg/ 24 hours oral tablet, extended release) 1 Tablets By Mouth Every day Allergies Moderna COVID-19 (6m-5y) Bivalent Booster Vaccine PF (Unknown) flu vaccines (Unknown) Dilaudid (Unknown) codeine (Unknown) celecoxib (Unknown) sulfa drugs (Unknown) Problems Ongoing - Any problem that you are currently receiving treatment for. Acute stress disorder ADHD Body mass index [BMI] 23.0-23.9, adult Breast cancer screening other than mammogram Cervical cancer screening Cigarette nicotine dependence with nicotine-induced disorder Colon cancer screening Cough Degeneration of cervical intervertebral disc Depression with anxiety Derangement of knee Diverticulitis of large intestine EBV (Will-Horne virus) Encounter for annual routine gynecological examination Fatigue GERD (gastroesophageal reflux disease) High serum ferritin Left shoulder pain Low ferritin Low hemoglobin Major depressive disorder, recurrent episode, mild Migraine Neck pain Physical exam Post-menopause Pre-op exam Rib fractures Sciatica Screening for hyperlipidemia Skin infection Supraspinatus tendon rupture Well woman exam Historical - Any problem that you are no longer receiving treatment for. BMI 24.0-24.9, adult BMI 25.0-25.9,adult Breast cancer screening Patient Survey You may receive a survey via text or e-mail asking about your office visit. Please share your experience with us by completing your survey. We appreciate your feedback and thank you for choosing us for your care. Patient Portal You may access all of your results and other medical record information on our secure patient portal. If you are not signed up for this yet, please contact [employer] at [phone] to get signed up today. Language Information Language assistance services are available as needed. AMBULATORY VISIT SUMMARY Observed: 08/15 2:20 PM Status: F Source: [facility] Ambulatory Visit Summary MIROSLAVA IRENE :1965 Visit Date:08/15/2024 Ambulatory Visit Instructions Your Diagnosis Fatigue Low ferritin High serum ferritin Low hemoglobin Cough Tests Performed Chest XR 2 Views -- Results Pending -- Please visit your patient portal for your results or contact your primary care physician. Your Care Team Attending Physician - Jennifer Heath Primary Care Physician - Jennifer Heath This Is Your Medications List Misc Prescription (vitamin b) Non-Formulary Medication (OTC iron +C) Non-Formulary Medication (multivitamin) Non-Formulary Medication (thymamine) acyclovir (acyclovir 400 mg Tab) albuterol (Albuterol (Eqv-ProAir HFA) 90 mcg/inh inhalation aerosol) amphetamine-dextroamphetamine (Adderall 30 mg oral tablet) baclofen (baclofen 10 mg Tab) diclofenac (diclofenac potassium 25 mg oral tablet) dicyclomine (dicyclomine 10 mg Cap) duloxetine (Cymbalta 60 mg Cap-DR) ferrous sulfate (ferrous sulfate 325 mg Tab) fluoride topical (Biotene) fluoxetine (FLUoxetine 20 mg Cap) fluticasone-salmeterol (Advair Diskus 500 mcg-50 mcg inhalation powder) lansoprazole (lansoprazole 30 mg Cap-DR) lorazepam (LORazepam 0.5 mg Tab) promethazine (promethazine 25 mg Tab) rimegepant (Nurtec ODT 75 mg oral tablet, disintegrating) tramadol (TraMADol (Eqv-Ultram ER) 300 mg/24 hours oral tablet, extended release) Procedures Performed Tonsillectomy and adenoidectomy (06/2001), Surgery. Discharge Vitals Temperature (Temporal Artery) 36.4 ???C Heart Rate (Peripheral) 98 Respiratory Rate 20 Blood Pressure 112/68 Height 172.6 cm Height 68 in Weight 68.8 kg Weight 151.678 lb BMI 23.09 What to do next Scheduled Follow-Up Appointments Wednesday 1:40 PM EDT With: Jennifer Heath Where: [address] [id number]- Wednesday 2:30 PM EDT With: Where: [facility] Wednesday 2:20 PM EDT With: Jennifer Heath Where: [address] [address]25 2:30 PM EDT With: Where: [address] [id number]- Medications What How Much When Why Instructions Unchanged acyclovir (acyclovir 400 mg Tab) 1 Tablets By Mouth 2 times a day Unchanged albuterol (Albuterol (Eqv-ProAir HFA) 90 mcg/ inh inhalation aerosol) Inhalation Every 6 hours Unchanged amphetamine-dextroamphetamine (Adderall 30 mg oral tablet) 1 Tablets By Mouth 2 times a day Unchanged baclofen (baclofen 10 mg Tab) 1 Tablets By Mouth 3 times a day as needed Unchanged diclofenac (diclofenac potassium 25 mg oral tablet) By Mouth 2 times a day Unchanged dicyclomine (dicyclomine 10 mg Cap) 1 Capsules By Mouth 4 times a day as needed Unchanged duloxetine (Cymbalta 60 mg Cap-DR) 60 Milligram By Mouth 2 times a day Unchanged ferrous sulfate (ferrous sulfate 325 mg Tab) 1 Tablets By Mouth 2 times a day Pre-op exam Fatigue Low hemoglobin Screening for hyperlipidemia Supraspinatus tendon rupture Left shoulder pain Major depressive disorder, recurrent episode, mild BMI 24.0-24.9, adult Unchanged fluoride topical (Biotene) By Mouth 2 times a day Unchanged fluoxetine (FLUoxetine 20 mg Cap) 2 Capsules By Mouth Every day Unchanged fluticasone-salmeterol (Advair Diskus 500 mcg-50 mcg inhalation powder) See instructions use twice a day Unchanged lansoprazole (lansoprazole 30 mg Cap-DR) 1 Capsules By Mouth Every day Unchanged lorazepam (LORazepam 0.5 mg Tab) 1 Tablets By Mouth 2 times a day as needed Unchanged Misc Prescription (vitamin b) 0 Unchanged Non-Formulary Medication (multivitamin) Unchanged Non-Formulary Medication (OTC iron +C) Unchanged Non-Formulary Medication (thymamine) Unchanged promethazine (promethazine 25 mg Tab) See instructions use prn when active migraine Unchanged rimegepant (Nurtec ODT 75 mg oral tablet, disintegrating) See instructions Use as directed allow tablet to dissolve on tongue Unchanged tramadol (TraMADol (Eqv-Ultram ER) 300 mg/ 24 hours oral tablet, extended release) 1 Tablets By Mouth Every day Allergies Moderna COVID-19 (6m-5y) Bivalent Booster Vaccine PF (Unknown) flu vaccines (Unknown) Dilaudid (Unknown) codeine (Unknown) celecoxib (Unknown) sulfa drugs (Unknown) Problems Ongoing - Any problem that you are currently receiving treatment for. Acute stress disorder ADHD Body mass index [BMI] 23.0-23.9, adult Breast cancer screening other than mammogram Cigarette nicotine dependence with nicotine-induced disorder Colon cancer screening Cough Degeneration of cervical intervertebral disc Depression with anxiety Derangement of knee Diverticulitis of large intestine EBV (Will-Horne virus) Fatigue GERD (gastroesophageal reflux disease) High serum ferritin Left shoulder pain Low ferritin Low hemoglobin Major depressive disorder, recurrent episode, mild Migraine Neck pain Physical exam Pre-op exam Rib fractures Sciatica Screening for hyperlipidemia Skin infection Supraspinatus tendon rupture Historical - Any problem that you are no longer receiving treatment for. BMI 24.0-24.9, adult BMI 25.0-25.9,adult Breast cancer screening Patient Survey You may receive a survey via text or e-mail asking about your office visit. Please share your experience with us by completing your survey. We appreciate your feedback and thank you for choosing us for your care. Patient Portal You may access all of your results and other medical record information on our secure patient portal. If you are not signed up for this yet, please contact [facility] at [phone] to get signed up today. Language Information Language assistance services are available as needed. FAMILY MEDICINE OFFICE/CLINI C NOTE Observed: 08/15/2024 2:20 PM Status: F Source: [facility] Family Medicine Office/Clini c Note HPI Staff Miroslava is a 59 year old female presenting for follow up Labs to check iron? Wants mammogram order sent to [facility] Has bruising on back, noticed when she had injections Has been feeling very fatigued due to autoimmune disorder flare up (Will blackmon) states that she feels horrible all the time Sees [place] in [place]. Has lab tests in [facility] History of Present Illness pt presents today to follow up on anemia Review of Systems PHQ Score Initial Depression Screen Score: 1 SCORE Physical Exam Vitals & Measurements T: 36.4 ???C(Temporal Artery) HR: 98(Peripheral) RR: 20 BP: 112/68 SpO2: 99% HT: 68 in HT: 172.6 cm WT: 151.678 lb WT: 68.8 kg BMI: 23.09 General: alert, no acute distress ENMT: oral mucosa moist, no pharyngeal erythema or exudate Cardiovascular: regular rate and rhythm, normal peripheral perfusion Respiratory: Lungs CTA, respirations non labored Extremities: no deformity, no trauma Neurological: oriented x 4, LOC appropriate for age, CN II-XII intact, motor strength equal & normal bilaterally, speech normal Assessment/Plan 1. Fatigue (R53.83: Other fatigue) pt c/o severe fatigue. has been taking iron. Dr. Jasmine also ordered other labs including Will blackmon titers. RTC 3 months Ordered: CBC w/ Auto Diff Comprehensive Metabolic Panel Ferritin Iron Level TIBC Calculated XR Chest 2 Views 2. Low ferritin (R79.0: Abnormal level of blood mineral) labs ordered. Ordered: CBC w/ Auto Diff Comprehensive Metabolic Panel Ferritin Iron Level TIBC Calculated XR Chest 2 Views 3. High serum ferritin (R79.89: Other specified abnormal findings of blood chemistry) labs ordered Ordered: CBC w/ Auto Diff Comprehensive Metabolic Panel Ferritin Iron Level TIBC Calculated XR Chest 2 Views 4. Low hemoglobin (D64.9: Anemia, unspecified) labs ordered Ordered: CBC w/ Auto Diff Comprehensive Metabolic Panel Ferritin Iron Level TIBC Calculated XR Chest 2 Views 5. Cough (R05.9: Cough, unspecified) chest x ray ordered Ordered: XR Chest 2 Views Follow-up No qualifying data available Problem List/Past Medical History Ongoing Acute stress disorder ADHD Body mass index [BMI] 23.0-23.9, adult Breast cancer screening other than mammogram Cigarette nicotine dependence with nicotine-induced disorder Colon cancer screening Cough Degeneration of cervical intervertebral disc Depression with anxiety Derangement of knee Diverticulitis of large intestine EBV (Will-Horne virus) Fatigue GERD (gastroesophageal reflux disease) High serum ferritin Left shoulder pain Low ferritin Low hemoglobin Major depressive disorder, recurrent episode, mild Migraine Neck pain Physical exam Pre-op exam Rib fractures Sciatica Screening for hyperlipidemia Skin infection Supraspinatus tendon rupture Historical BMI 24.0-24.9, adult BMI 25.0-25.9,adult Breast cancer screening Procedure/Surgical History Tonsillectomy and adenoidectomy (06/2001), Surgery. Medications acyclovir 400 mg Tab, 400 mg= 1 tab(s), Oral, BID Adderall 30 mg oral tablet, 30 mg= 1 tab(s), Oral, BID Advair Diskus 500 mcg-50 mcg inhalation powder, See Instructions Albuterol (Eqv-ProAir HFA) 90 mcg/inh inhalation aerosol, Inhalation, q6hr baclofen 10 mg Tab, 10 mg= 1 tab(s), Oral, TID Biotene, Oral, BID Cymbalta 60 mg Cap-DR, 60 mg, Oral, BID diclofenac potassium 25 mg oral tablet, Oral, BID dicyclomine 10 mg Cap, 10 mg= 1 cap(s), Oral, QID ferrous sulfate 325 mg Tab, 325 mg= 1 tab(s), Oral, BID, 5 refills FLUoxetine 20 mg Cap, 40 mg= 2 cap(s), Oral, Daily lansoprazole 30 mg Cap-DR, 30 mg= 1 cap(s), Oral, Daily LORazepam 0.5 mg Tab, 0.5 mg= 1 tab(s), Oral, BID multivitamin Nurtec ODT 75 mg oral tablet, disintegrating, See Instructions OTC iron +C promethazine 25 mg Tab, See Instructions thymamine TraMADol (Eqv-Ultram ER) 300 mg/24 hours oral tablet, extended release, 300 mg= 1 tab(s), Oral, Daily vitamin b, 0 Allergies Moderna COVID-19 (6m-5y) Bivalent Booster Vaccine PF (Unknown) flu vaccines (Unknown) Dilaudid (Unknown) codeine (Unknown) celecoxib (Unknown) sulfa drugs (Unknown) Social History Alcohol Never., 08/12/2024 Substance Abuse Never., 08/12/2024 Tobacco 5-9 cigarettes (between 1/4 to 1/2 pack)/day in last 30 days Tobacco Use:. Former vaping or e-cigarette use Smokeless Tobacco Use:. Cigarettes, Started age 19.0 Years. Ready to change: Yes. Household tobacco concerns: Yes. Yes, 08/15/2024 Family History Dementia: Mother. Hypertension: Mother. Immunizations Vaccine Date Status SARS-CoV-2 (COVID-19) mRNA-1273 vaccine 03/20/2020 Recorded SARS-CoV-2 (COVID-19) mRNA-1273 vaccine 02/21/2020 Recorded measles/mumps/rubella virus vaccine 09/06/1996 Recorded Td(adult) unspecified formulation 08/28/1996 Recorded Result Comment: Electronical ly Signed By: Jennifer Heath\.br\Date and Time Signed: 08/15/24 15:34 EDT PATIENT EDUCATION Observed: 08/02/2024 4:02 PM Status: C Source: [facility] Patient Education Gastroenterology Heartburn Heartburn is a type of pain or discomfort that can happen in the throat or chest. It is often described as a burning pain. It may also cause a bad, acid-like taste in the mouth. Heartburn may feel worse when you lie down or bend over, and it is often worse at night. Heartburn may be caused by stomach contents that move back up into the esophagus (reflux). Follow these instructions at home: Eating and drinking ??? Avoid certain foods and drinks as told by your health care provider. This may include: ? Coffee and tea, with or without caffeine. ? Drinks that contain alcohol. ? Energy drinks and sports drinks. ? Carbonated drinks or sodas. ? Chocolate and cocoa. ? Peppermint and mint flavorings. ? Garlic and onions. ? Horseradish. ? Spicy and acidic foods, including peppers, chili powder, darby powder, vinegar, hot sauces, and barbecue sauce. ? Love fruit juices and citrus fruits, such as oranges, diane, and limes. ? Tomato-based foods, such as red sauce, chili, salsa, and pizza with red sauce. ? Fried and fatty foods, such as donuts, kenyan fries, potato chips, and high- fat dressings. ? High-fat meats, such as hot dogs and fatty cuts of red and white meats, such as rib eye steak, sausage, ham, and rosas. ? High-fat dairy items, such as whole milk, butter, and cream cheese. ??? Eat small, frequent meals instead of large meals. ??? Avoid drinking large amounts of liquid with your meals. ??? Avoid eating meals during the 2?3 hours before bedtime. ??? Avoid lying down right after you eat. ??? Do not exercise right after you eat. Lifestyle ??? If you are overweight, reduce your weight to an amount that is healthy for you. Ask your health care provider for guidance about a safe weight loss goal. ??? Do not use any products that contain nicotine or tobacco. These products include cigarettes, chewing tobacco, and vaping devices, such as e-cigarettes. These can make symptoms worse. If you need help quitting, ask your health care provider. ??? Wear loose-fitting clothing. Do not wear anything tight around your waist that causes pressure on your abdomen. ??? Raise (elevate) the head of your bed about 6 inches (15 cm) when you sleep. You can use a wedge to do this. ??? Try to reduce your stress, such as with yoga or meditation. If you need help reducing stress, ask your health care provider. Medicines ??? Take raab-dhk-ktbwggt and prescription medicines only as told by your health care provider. ??? Do not take aspirin or NSAIDs, such as ibuprofen, unless your health care provider told you to do so. ??? Stop medicines only as told by your health care provider. If you stop taking some medicines too quickly, your symptoms may get worse. General instructions ??? Pay attention to any changes in your symptoms. ??? Keep all follow-up visits. This is important. Contact a health care provider if: ??? You have new symptoms. ??? You have unexplained weight loss. ??? You have difficulty swallowing, or it hurts to swallow. ??? You have wheezing or a persistent cough. ??? Your symptoms do not improve with treatment. ??? You have frequent heartburn for more than 2 weeks. Get help right away if: ??? You suddenly have pain in your arms, neck, jaw, teeth, or back. ??? You suddenly feel sweaty, dizzy, or light-headed. ??? You have chest pain or shortness of breath. ??? You vomit and your vomit looks like blood or coffee grounds. ??? Your stool is bloody or black. These symptoms may represent a serious problem that is an emergency. Do not wait to see if the symptoms will go away. Get medical help right away. Call your local emergency services (911 in the [place] Do not drive yourself to the hospital. Summary ??? Heartburn is a type of pain or discomfort that can happen in the throat or chest. It is often described as a burning pain. It may also cause a bad, acid-like taste in the mouth. ??? Avoid certain foods and drinks as told by your health care provider. ??? Take ibir-bvp-xslutyc and prescription medicines only as told by your health care provider. Do not take aspirin or NSAIDs, such as ibuprofen, unless your health care provider told you to do so. ??? Contact a health care provider if your symptoms do not improve or they get worse. This information is not intended to replace advice given to you by your health care provider. Make sure you discuss any questions you have with your health care provider. Document Revised: 07/31/2020 Document Reviewed: 07/31/2020 [employer] Patient Education ? 2023 [employer].Mental and Behavioral Health Attention Deficit Hyperactivity Disorder, Adult Attention deficit hyperactivity disorder (ADHD) is a mental health disorder that starts during childhood. For many people with ADHD, the disorder continues into the adult years. Treatment can help you manage your symptoms. There are three main types of ADHD: ??? Inattentive. With this type, adults have difficulty paying attention. This may affect cognitive abilities. ??? Hyperactive-impulsive. With this type, adults have a lot of energy and have difficulty controlling their behavior. ??? Combination type. Some people may have symptoms of both types. What are the causes? The exact cause of ADHD is not known. Most experts believe a person's genes and environment possibly contribute to ADHD. What increases the risk? The following factors may make you more likely to develop this condition: ??? Having a first-degree relative such as a parent, brother, or sister, with the condition. ??? Being born before 37 weeks of (prematurely) or at a low weight. ??? Being born to a mother who smoked tobacco or drank alcohol during . ??? Having experienced a brain injury. ??? Being exposed to lead or other toxins in the womb or early in life. What are the signs or symptoms? Symptoms of this condition depend on the type of ADHD. Symptoms of the inattentive type include: ??? Difficulty paying attention or following instructions. ??? Often making simple mistakes. ??? Being disorganized. ??? Avoiding tasks that require time and attention. ??? Losing and forgetting things. Symptoms of the hyperactive-impulsive type include: ??? Restlessness. ??? Talking out of turn, interrupting others, or talking too much. ??? Difficulty with: ? Sitting still. ? Feeling motivated. ? Relaxing. ? Waiting in line or waiting for a turn. People with the combination type have symptoms of both of the other types. In adults, this condition may lead to certain problems, such as: ??? Keeping jobs. ??? Performing tasks at work. ??? Having stable relationships. ??? Being on time or keeping to a schedule. How is this diagnosed? This condition is diagnosed based on your current symptoms and your history of symptoms. The diagnosis can be made by a health care provider such as a primary care provider or a mental health housekeeper child care. Your health care provider may use a symptom checklist or a behavior rating scale to evaluate your symptoms. Your health care provider may also want to talk with people who have observed your behaviors throughout your life. How is this treated? This condition can be treated with medicines and behavior therapy. Medicines may be the best option to reduce impulsive behaviors and improve attention. Your health care provider may recommend: ??? Stimulant medicines. These are the most common medicines used for adult ADHD. They affect certain chemicals in the brain (neurotransmitters) and improve your ability to control your symptoms. ??? A non-stimulant medicine. These medicines can also improve focus, attention, and impulsive behavior. It may take weeks to months to see the effects of this medicine. Counseling and behavioral management are also important for treating ADHD. Counseling is often used along with medicine. Your health care provider may suggest: ??? Cognitive behavioral therapy (CBT). This type of therapy teaches you to replace negative thoughts and actions with positive thoughts and actions. When used as part of ADHD treatment, this therapy may also include: ? Coping strategies for organization, time management, impulse control, and stress reduction. ? Mindfulness and meditation training. ??? Behavioral management. You may work with a math coach who is specially trained to help people with ADHD manage and organize activities and function more effectively. Follow these instructions at home: Medicines ??? Take jgbi-qyz-gyzkkle and prescription medicines only as told by your health care provider. ??? Talk with your health care provider about the possible side effects of your medicines and how to manage them. Alcohol use ??? Do not drink alcohol if: ? Your health care provider tells you not to drink. ? You are , may be , or are planning to become . ??? If you drink alcohol: ? Limit how much you use to: ? 0?1 drink a day for women. ? 0?2 drinks a day for men. ? Know how much alcohol is in your drink. In the [place] one drink equals one 12 oz bottle of beer (355 mL), one 5 oz glass of wine (148 mL), or one 1? oz glass of hard liquor (44 mL). Lifestyle ??? Do not use illegal drugs. ??? Get enough sleep. ??? Eat a healthy diet. ??? Exercise regularly. Exercise can help to reduce stress and anxiety. General instructions ??? Learn as much as you can about adult ADHD, and work closely with your health care providers to find the treatments that work best for you. ??? Follow the same schedule each day. ??? Use reminder devices like notes, calendars, and phone apps to stay on time and organized. ??? Keep all follow-up visits. Your health care provider will need to monitor your condition and adjust your treatment over time. Where to find more information A health care provider may be able to recommend resources that are available online or over the phone. You could start with: ??? Attention Deficit Disorder Association (ADDA): add.org ??? National [facility] [employer] [facility] (NIMH): nimh.nih.gov Contact a health care provider if: ??? Your symptoms continue to cause problems. ??? You have side effects from your medicine, such as: ? Repeated muscle twitches, coughing, or speech outbursts. ? Sleep problems. ? Loss of appetite. ? Dizziness. ? Unusually fast heartbeat. ? Stomach pains. ? Headaches. ??? You are struggling with anxiety, depression, or substance abuse. Get help right away if: ??? You have a severe reaction to a medicine. This symptom may be an emergency. Get help right away. Call 911. ??? Do not wait to see if the symptom will go away. ??? Do not drive yourself to the hospital. Take one of these steps if you feel like you may hurt yourself or others, or have thoughts about taking your own life: ??? Go to your nearest emergency room. ??? Call 911. ??? Call the National Suicide Prevention Lifeline at or 533. This is open 24 hours a day ??? Text the Crisis Text Line at 907064. Summary ??? ADHD is a mental health disorder that starts during childhood and often continues into your adult years. ??? The exact cause of ADHD is not known. Most experts believe genetics and environmental factors contribute to ADHD. ??? There is no cure for ADHD, but treatment with medicine, cognitive behavioral therapy, or behavioral management can help you manage your condition. This information is not intended to replace advice given to you by your health care provider. Make sure you discuss any questions you have with your health care provider. Document Revised: 05/15/2022 Document Reviewed: 05/15/2022 [employer] Patient Education ? 2023 [employer]Managing Depression, Adult Depression is a mental health condition that affects your thoughts, feelings, and actions. Being diagnosed with depression can bring you relief if you did not know why you have felt or behaved a certain way. It could also leave you feeling overwhelmed. Finding ways to manage your symptoms can help you feel more positive about your future. How to manage lifestyle changes Being depressed is difficult. Depression can increase the level of everyday stress. Stress can make depression symptoms worse. You may believe your symptoms cannot be managed or will never improve. However, there are many things you can try to help manage your symptoms. There is hope. Managing stress Stress is your body's reaction to life changes and events, both good and bad. Stress can add to your feelings of depression. Learning to manage your stress can help lessen your feelings of depression. Try some of the following approaches to reducing your stress (stress reduction techniques): ??? Listen to music that you enjoy and that inspires you. ??? Try using a meditation jodee or take a meditation class. ??? Develop a practice that helps you connect with your spiritual self. Walk in nature, pray, or go to a place of rastafari. ??? Practice deep breathing. To do this, inhale slowly through your nose. Pause at the top of your inhale for a few seconds and then exhale slowly, letting yourself relax. Repeat this three or four times. ??? Practice yoga to help relax and work your muscles. Choose a stress reduction technique that works for you. These techniques take time and practice to develop. Set aside 5?15 minutes a day to do them. Therapists can offer training in these techniques. Do these things to help manage stress: ??? Keep a journal. ??? Know your limits. Set healthy boundaries for yourself and others, such as saying no when you think something is too much. ??? Pay attention to how you react to certain situations. You may not be able to control everything, but you can change your reaction. ??? Add humor to your life by watching funny movies or shows. ??? Make time for activities that you enjoy and that relax you. ??? Spend less time using electronics, especially at night before bed. The light from screens can make your brain think it is time to get up rather than go to bed. Medicines Medicines, such as antidepressants, are often a part of treatment for depression. ??? Talk with your pharmacist or health care provider about all the medicines, supplements, and herbal products that you take, their possible side effects, and what medicines and other products are safe to take together. ??? Make sure to report any side effects you may have to your health care provider. Relationships Your health care provider may suggest family therapy, couples therapy, or individual therapy as part of your treatment. How to recognize changes Everyone responds differently to treatment for depression. As you recover from depression, you may start to: ??? Have more interest in doing activities. ??? Feel more hopeful. ??? Have more energy. ??? Eat a more regular amount of food. ??? Have better mental focus. It is important to recognize if your depression is not getting better or is getting worse. The symptoms you had in the beginning may return, such as: ??? Feeling tired. ??? Eating too much or too little. ??? Sleeping too much or too little. ??? Feeling restless, agitated, or hopeless. ??? Trouble focusing or making decisions. ??? Having unexplained aches and pains. ??? Feeling irritable, angry, or aggressive. If you or your family members notice these symptoms coming back, let your health care provider know right away. Follow these instructions at home: Activity ??? Try to get some form of exercise each day, such as walking. ??? Try yoga, mindfulness, or other stress reduction techniques. ??? Participate in group activities if you are able. Lifestyle ??? Get enough sleep. ??? Cut down on or stop using caffeine, tobacco, alcohol, and any other harmful substances. ??? Eat a healthy diet that includes plenty of vegetables, fruits, whole grains, low-fat dairy products, and lean protein. Limit foods that are high in solid fats, added sugar, or salt (sodium). General instructions ??? Take ywug-hah-awgjcnr and prescription medicines only as told by your health care provider. ??? Keep all follow-up visits. It is important for your health care provider to check on your mood, behavior, and medicines. Your health care provider may need to make changes to your treatment. Where to find support Talking to others Friends and family members can be sources of support and guidance. Talk to trusted friends or family members about your condition. Explain your symptoms and let them know that you are working with a health care provider to treat your depression. Tell friends and family how they can help. Finances ??? Find mental health providers that fit with your financial situation. ??? Talk with your health care provider if you are worried about access to food, housing, or medicine. ??? Call your insurance company to learn about your co-pays and prescription plan. Where to find more information You can find support in your area from: ??? Anxiety and Depression Association of [place] (ADAA): adaa.org ??? Mental Health [place]: mentalhealthamerica.net ??? National [place] on Mental Illness: elisabet.org Contact a health care provider if: ??? You stop taking your antidepressant medicines, and you have any of these symptoms: ? Nausea. ? Headache. ? Light-headedness. ? Chills and body aches. ? Not being able to sleep (insomnia). ??? You or your friends and family think your depression is getting worse. Get help right away if: ??? You have thoughts of hurting yourself or others. Get help right away if you feel like you may hurt yourself or others, or have thoughts about taking your own life. Go to your nearest emergency room or: ??? Call 911. ??? Call the National Suicide Prevention Lifeline at or 069. This is open 24 hours a day. ??? Text the Crisis Text Line at 802883. This information is not intended to replace advice given to you by your health care provider. Make sure you discuss any questions you have with your health care provider. Document Revised: 06/02/2022 Document Reviewed: 06/02/2022 [employer] Patient Education ? 2023 [employer].Managing Anxiety, Adult After being diagnosed with anxiety, you may be relieved to know why you have felt or behaved a certain way. You may also feel overwhelmed about the treatment ahead and what it will mean for your life. With care and support, you can manage your anxiety. How to manage lifestyle changes Understanding the difference between stress and anxiety Although stress can play a role in anxiety, it is not the same as anxiety. Stress is your body's reaction to life changes and events, both good and bad. Stress is often caused by something external, such as a deadline, test, or competition. It normally goes away after the event has ended and will last just a few hours. But, stress can be ongoing and can lead to more than just stress. Anxiety is caused by something internal, such as imagining a terrible outcome or worrying that something will go wrong that will greatly upset you. Anxiety often does not go away even after the event is over, and it can become a long-term (chronic) worry. Lowering stress and anxiety Talk with your health care provider or a counselor to learn more about lowering anxiety and stress. They may suggest tension-reduction techniques, such as: ??? Music. Spend time creating or listening to music that you enjoy and that inspires you. ??? Mindfulness-based meditation. Practice being aware of your normal breaths while not trying to control your breathing. It can be done while sitting or walking. ??? Centering prayer. Focus on a word, phrase, or sacred image that means something to you and brings you peace. ??? Deep breathing. Expand your stomach and inhale slowly through your nose. Hold your breath for 3?5 seconds. Then breathe out slowly, letting your stomach muscles relax. ??? Self-talk. Learn to notice and spot thought patterns that lead to anxiety reactions. Change those patterns to thoughts that feel peaceful. ??? Muscle relaxation. Take time to tense muscles and then relax them. Choose a tension-reduction technique that fits your lifestyle and personality. These techniques take time and practice. Set aside 5?15 minutes a day to do them. Specialized therapists can offer counseling and training in these techniques. The training to help with anxiety may be covered by some insurance plans. Other things you can do to manage stress and anxiety include: ??? Keeping a stress diary. This can help you learn what triggers your reaction and then learn ways to manage your response. ??? Thinking about how you react to certain situations. You may not be able to control everything, but you can control your response. ??? Making time for activities that help you relax and not feeling guilty about spending your time in this way. ??? Doing visual imagery. This involves imagining or creating mental pictures to help you relax. ??? Practicing yoga. Through yoga poses, you can lower tension and relax. Medicines Medicines for anxiety include: ??? Antidepressant medicines. These are usually prescribed for long-term daily control. ??? Anti-anxiety medicines. These may be added in severe cases, especially when panic attacks occur. When used together, medicines, psychotherapy, and tension-reduction techniques may be the most effective treatment. Relationships Relationships can play a big part in helping you recover. Spend more time connecting with trusted friends and family members. Think about going to couples counseling if you have a partner, taking family education classes, or going to family therapy. Therapy can help you and others better understand your anxiety. How to recognize changes in your anxiety Everyone responds differently to treatment for anxiety. Recovery from anxiety happens when symptoms lessen and stop interfering with your daily life at home or work. This may mean that you will start to: ??? Have better concentration and focus. Worry will interfere less in your daily thinking. ??? Sleep better. ??? Be less irritable. ??? Have more energy. ??? Have improved memory. Try to recognize when your condition is getting worse. Contact your provider if your symptoms interfere with home or work and you feel like your condition is not improving. Follow these instructions at home: Activity ??? Exercise. Adults should: ? Exercise for at least 150 minutes each week. The exercise should increase your heart rate and make you sweat (moderate-intensity exercise). ? Do strengthening exercises at least twice a week. ??? Get the right amount and quality of sleep. Most adults need 7?9 hours of sleep each night. Lifestyle ??? Eat a healthy diet that includes plenty of vegetables, fruits, whole grains, low-fat dairy products, and lean protein. ? Do not eat a lot of foods that are high in fats, added sugars, or salt (sodium). ??? Make choices that simplify your life. ??? Do not use any products that contain nicotine or tobacco. These products include cigarettes, chewing tobacco, and vaping devices, such as e-cigarettes. If you need help quitting, ask your provider. ??? Avoid caffeine, alcohol, and certain gcuv-luu-kbbjvby cold medicines. These may make you feel worse. Ask your pharmacist which medicines to avoid. General instructions ??? Take goco-ehs-ffcxodf and prescription medicines only as told by your provider. ??? Keep all follow-up visits. This is to make sure you are managing your anxiety well or if you need more support. Where to find support You can get help and support from: ??? Self-help groups. ??? Online and community organizations. ??? A trusted spiritual leader. ??? Couples counseling. ??? Family education classes. ??? Family therapy. Where to find more information You may find that joining a support group helps you deal with your anxiety. The following sources can help you find counselors or support groups near you: ??? Mental Health [place]: mentalhealthamerica.net ??? Anxiety and Depression Association of [place] (ADAA): adaa.org ??? National [place] on Mental Illness ([place]IS[place]ET): elisabet.org Contact a health care provider if: ??? You have a hard time staying focused or finishing tasks. ??? You spend many hours a day feeling worried about everyday life. ??? You are very tired because you cannot stop worrying. ??? You start to have headaches or often feel tense. ??? You have chronic nausea or diarrhea. Get help right away if: ??? Your heart feels like it is racing. ??? You have shortness of breath. ??? You have thoughts of hurting yourself or others. Get help right away if you feel like you may hurt yourself or others, or have thoughts about taking your own life. Go to your nearest emergency room or: ??? Call 911. ??? Call the National Suicide Prevention Lifeline at or 909. This is open 24 hours a day. ??? Text the Crisis Text Line at 413938. This information is not intended to replace advice given to you by your health care provider. Make sure you discuss any questions you have with your health care provider. Document Revised: 11/03/2022 Document Reviewed: 05/18/2021 [employer] Patient Education ? 2023 [employer]Neurology Chronic Migraine Headache A migraine headache is throbbing pain that is usually on one side of the head. It can also cause other symptoms. A migraine is called a chronic migraine if it happens at least 15 days in a month for more than 3 months. Talk with your doctor about what things may bring on (trigger) your migraines. What are the causes? The exact cause of a migraine is not known. This condition may be brought on or caused by: ??? Smoking. ??? Some medicines, such as control or some blood pressure medicines. ??? Certain substances in some foods or drinks. ??? Foods and drinks, such as: ? Cheese. ? Chocolate. ? Alcohol. ? Caffeine. Other things that may bring on a migraine include: ??? Periods. ??? Stress. ??? Getting too much or too little sleep. ??? Feeling tired (fatigue). ??? Bright lights or loud noises. ??? Certain smells. ??? Weather changes and being at high altitude. What increases the risk? The following factors may make you more likely to have chronic migraines: ??? Having migraines or family members who have them. ??? Having a mental health condition, such as being sad (depressed) or feeling worried or nervous (anxious). ??? Taking a lot of pain medicine. ??? Having sleep problems. ??? Having heart disease, diabetes, or being very overweight (obese). What are the signs or symptoms? Symptoms vary for each person. The pain may: ??? Feel like it is pulsing or throbbing. ??? Happen only on one side of the head. In some cases, the pain may be on both sides of the head or around the head or neck. ??? Be so bad that it keeps you from doing daily activities. ??? Get worse with activity. ??? Make you feel like you may vomit (feel nauseous) or vomit. ??? Get worse around bright lights, loud noises, or smells. ??? Cause you to feel dizzy. A sign that you may have chronic migraines is when you start to have more and more migraines. How is this treated? This condition is treated with medicines that: ??? Lessen pain and the feeling like you may vomit. ??? Prevent migraines. Treatment may also include: ??? Acupuncture. ??? Changes to your diet or sleep. ??? Relaxation training. ??? Learning ways to control your body and breathing (biofeedback). ??? Talk therapy to help you know and deal with negative thoughts (cognitive behavioral therapy). ??? Using a device that gives electrical stimulation to your nerves, which can help take away pain. ??? A shot of medicine into the muscles of the face or head. ??? Surgery, if the other treatments do not work. Follow these instructions at home: Medicines ??? Take ztzm-csj-mlcxfsm and prescription medicines only as told by your doctor. ??? Ask your doctor if the medicine prescribed to you requires you to avoid driving or using machinery. Lifestyle ??? Do not drink alcohol. ??? Do not smoke or use any products that contain nicotine or tobacco. If you need help quitting, ask your doctor. ??? Get 7-9 hours of sleep every night, or the amount of sleep recommended by your doctor. ??? Lower the stress in your life. Ask your doctor about ways to do this. ??? Stay at a healthy weight. Talk with your doctor if you need help losing weight. ??? Get regular exercise. General instructions ??? Keep a journal to find out if certain things bring on migraines. This can help you avoid those things. For example, write down: ? What you eat and drink. ? How much sleep you get. ? Any change to your diet or medicines. ??? Lie down in a dark, quiet room when you have a migraine. ??? Try placing a cool towel over your head when you have a migraine. ??? Keep lights dim if bright lights bother you or make your migraines worse. Where to find more information ??? Coalition for Headache and Migraine Patients (CHAMP): headachemigraine.org ??? [place] Mig[place] Foundation: americanmigrainefoundation.org ??? National Headache Foundation: headaches.org Contact a doctor if: ??? Medicine does not help your migraine. ??? Your pain keeps coming back even with medicine. Get help right away if: ??? Your migraine becomes really bad and medicine does not help. ??? You have a fever or stiff neck. ??? You have trouble seeing. ??? Your muscles are weak or you lose control of them. ??? You lose your balance or have trouble walking. ??? You feel like you may faint or you faint. ??? You start having sudden, very bad headaches. ??? You have a seizure. This information is not intended to replace advice given to you by your health care provider. Make sure you discuss any questions you have with your health care provider. Document Revised: 09/21/2022 Document Reviewed: 09/21/2022 [employer] Patient Education ? 2023 [employer].Pulmonary Medicine Steps to Quit Smoking Smoking tobacco is the leading cause of preventable . It can affect almost every organ in the body. Smoking puts you and people around you at risk for many serious, long-lasting (chronic) diseases. Quitting smoking can be hard, but it is one of the best things that you can do for your health. It is never too late to quit. Do not give up if you cannot quit the first time. Some people need to try many times to quit. Do your best to stick to your quit plan, and talk with your doctor if you have any questions or concerns. How do I get ready to quit? Pick a date to quit. Set a date within the next 2 weeks to give you time to prepare. ??? Write down the reasons why you are quitting. Keep this list in places where you will see it often. ??? Tell your family, friends, and co-workers that you are quitting. Their support is important. ??? Talk with your doctor about the choices that may help you quit. ??? Find out if your health insurance will pay for these treatments. ??? Know the people, places, things, and activities that make you want to smoke (triggers). Avoid them. What first steps can I take to quit smoking? Throw away all cigarettes at home, at work, and in your car. ??? Throw away the things that you use when you smoke, such as ashtrays and lighters. ??? Clean your car. Empty the ashtray. ??? Clean your home, including curtains and carpets. What can I do to help me quit smoking? Talk with your doctor about taking medicines and seeing a counselor. You are more likely to succeed when you do both. If you are or : ??? Talk with your doctor about counseling or other ways to quit smoking. ??? Do not take medicine to help you quit smoking unless your doctor tells you to. Quit right away ??? Quit smoking completely, instead of slowly cutting back on how much you smoke over a period of time. Stopping smoking right away may be more successful than slowly quitting. ??? Go to counseling. In-person is best if this is an option. You are more likely to quit if you go to counseling sessions regularly. Take medicine You may take medicines to help you quit. Some medicines need a prescription, and some you can buy pavc-wzo-pqkspai. Some medicines may contain a drug called nicotine to replace the nicotine in cigarettes. Medicines may: ??? Help you stop having the desire to smoke (cravings). ??? Help to stop the problems that come when you stop smoking (withdrawal symptoms). Your doctor may ask you to use: ??? Nicotine patches, gum, or lozenges. ??? Nicotine inhalers or sprays. ??? Non-nicotine medicine that you take by mouth. Find resources Find resources and other ways to help you quit smoking and remain smoke-free after you quit. They include: ??? Online chats with a counselor. ??? Phone quitlines. ??? Printed self-help materials. ??? Support groups or group counseling. ??? Text messaging programs. ??? Mobile phone apps. Use apps on your mobile phone or tablet that can help you stick to your quit plan. Examples of free services include Quit Guide from the CDC and smokefree.gov What can I do to make it easier to quit? Talk to your family and friends. Ask them to support and encourage you. ??? Call a phone quitline, such as 0-859-JOYGKulv Travel AgencyNOW, reach out to support groups, or work with a counselor. ??? Ask people who smoke to not smoke around you. ??? Avoid places that make you want to smoke, such as: ? Bars. ? Parties. ? Smoke-break areas at work. ??? Spend time with people who do not smoke. ??? Lower the stress in your life. Stress can make you want to smoke. Try these things to lower stress: ? Getting regular exercise. ? Doing deep-breathing exercises. ? Doing yoga. ? Meditating. What benefits will I see if I quit smoking? Over time, you may have: ??? A better sense of smell and taste. ??? Less coughing and sore throat. ??? A slower heart rate. ??? Lower blood pressure. ??? Clearer skin. ??? Better breathing. ??? Fewer sick days. Summary ??? Quitting smoking can be hard, but it is one of the best things that you can do for your health. ??? Do not give up if you cannot quit the first time. Some people need to try many times to quit. ??? When you decide to quit smoking, make a plan to help you succeed. ??? Quit smoking right away, not slowly over a period of time. ??? When you start quitting, get help and support to keep you smoke-free. This information is not intended to replace advice given to you by your health care provider. Make sure you discuss any questions you have with your health care provider. Document Revised: 01/16/2022 Document Reviewed: 01/16/2022 [employer] Patient Education ? 2023 [employer]Health Risks of Smoking Smoking tobacco is very bad for your health. Tobacco smoke contains many toxic chemicals that can damage every part of your body. Secondhand smoke can be harmful to those around you. Tobacco or nicotine use can cause many long-term (chronic) diseases. Smoking is difficult to quit because a chemical in tobacco, called nicotine, causes addiction or dependence. When you smoke and inhale, nicotine is absorbed quickly into your bloodstream through your lungs. Both inhaled and non-inhaled nicotine may be addictive. How can quitting affect me? There are health benefits of quitting smoking. Some benefits happen right away and others take time. Benefits may include: ??? Blood flow, blood pressure, heart rate, and lung capacity may begin to improve. However, any lung damage that has already occurred cannot be repaired. ??? Respiratory symptoms from smoking, such as nasal congestion and cough, may improve over time. ??? Your risk of heart disease, stroke, and cancer is reduced. ??? The overall quality of your health may improve. ??? You may save money, as you will not spend money on tobacco products and may spend less money on smoking-related health issues. What can increase my risk? Smoking harms nearly every organ in the body. People who smoke tobacco have a shorter life expectancy and an increased risk of many serious medical problems. These include: ??? More respiratory infections, such as colds and pneumonia. ??? Cancer. ??? Heart disease. ??? Stroke. ??? Chronic respiratory diseases. ??? Delayed wound healing and increased risk of complications during surgery. ??? Problems with reproduction, , and childbirth, such as infertility, early (premature) births, stillbirths, and defects. Secondhand smoke exposure to children increases the risk of: ??? Sudden syndrome (SIDS). ??? Infections in the nose, throat, or airways (respiratory infections). ??? Chronic respiratory symptoms. What actions can I take to quit? Smoking is an addiction that affects both your body and your mind, and long-time habits can be hard to change. Your health care provider can recommend: ??? Nicotine replacement products, such as patches, gum, and nasal sprays. Use these products only as directed. Do not replace cigarette smoking with electronic cigarettes, which are commonly called e-cigarettes. The safety of e-cigarettes is not known, and some may contain harmful chemicals. ??? Programs and community resources, which may include group support, education, or talk therapy. ??? Prescription medicines to help reduce cravings. ??? A combination of two or more quit methods, which may increase the success of quitting. Where to find support Follow the recommendations from your health care provider about support groups and other assistance. You can also visit: ??? U.S. Department of Health and Human Services: www.smokefree.gov ??? [place] [employer] Association: www.freedomfromsmoking.org ??? [place] Heart Association: www.heart.org Where to find more information ??? Centers for Disease Control and Prevention: www.cdc.gov ??? World Health Organization: www.who.int Summary ??? Smoking tobacco is very bad for your health. Tobacco smoke contains many toxic chemicals that can damage every part of the body. ??? Smoking is difficult to quit because a chemical in tobacco, called nicotine, causes addiction or dependence. ??? There are immediate and long-term health benefits of quitting smoking. ??? A combination of two or more quit methods may increase the success of quitting. This information is not intended to replace advice given to you by your health care provider. Make sure you discuss any questions you have with your health care provider. Document Revised: 01/27/2022 Document Reviewed: 01/27/2022 [employer] Patient Education ? 2023 [employer]. AMBULATORY VISIT SUMMARY Observed: 08/02 1:00 PM Status: F Source: [facility] Ambulatory Visit Summary MIROSLAVA IRENE :1965 Visit Date:08/02/2024 Ambulatory Visit Instructions Your Diagnosis Encounter for Medicare annual examination with abnormal findings Breast cancer screening by mammogram Depression with anxiety Acute stress disorder EBV (Will-Horne virus) GERD (gastroesophageal reflux disease) ADHD Cigarette nicotine dependence with nicotine-induced disorder Migraine No advance directives Your Care Team Attending Physician - Jennifer Heath Primary Care Physician - Jennifer Heath This Is Your Medications List Misc Prescription (vitamin b) Non-Formulary Medication (OTC iron +C) Non-Formulary Medication (multivitamin) Non-Formulary Medication (thymamine) acyclovir (acyclovir 400 mg Tab) albuterol (Albuterol (Eqv-ProAir HFA) 90 mcg/inh inhalation aerosol) amphetamine-dextroamphetamine (Adderall 30 mg oral tablet) baclofen (baclofen 10 mg Tab) diclofenac (diclofenac potassium 25 mg oral tablet) dicyclomine (dicyclomine 10 mg Cap) duloxetine (Cymbalta 60 mg Cap-DR) ferrous sulfate (ferrous sulfate 325 mg Tab) fluoride topical (Biotene) fluoxetine (FLUoxetine 20 mg Cap) fluticasone-salmeterol (Advair Diskus 500 mcg-50 mcg inhalation powder) lansoprazole (lansoprazole 30 mg Cap-DR) lorazepam (LORazepam 0.5 mg Tab) promethazine (promethazine 25 mg Tab) rimegepant (Nurtec ODT 75 mg oral tablet, disintegrating) tramadol (TraMADol (Eqv-Ultram ER) 300 mg/24 hours oral tablet, extended release) Procedures Performed Tonsillectomy and adenoidectomy (06/2001), Surgery. Discharge Vitals Heart Rate (Peripheral) 90 Blood Pressure 104/56 Height 172.6 cm Height 68 in Weight 68.8 kg Weight 151.678 lb BMI 23.09 What to do next Scheduled Follow-Up Appointments Wednesday 2:00 PM EDT With: Jennifer Heath Where: [address] [id number]- Wednesday 1:40 PM EDT With: Jennifer Heath Where: [address] [id number]- Wednesday 2:30 PM EDT With: Where: [facility] 2025 2:30 PM EDT With: Where: [address] [place] [address]- You Need to Complete the Following MA Mamm Screen w/CAD if perf and 3D George, 09/01/24, Routine, Order for Future Visit, Transport Mode: Ambulatory, Reason: Screening, Reason: Z12.31, No, No, No, Breast cancer screening by mammogram, will call [facility] for films, pp_[id number], Required & Missing, [facility] Medications What How Much When Why Instructions Unchanged acyclovir (acyclovir 400 mg Tab) 1 Tablets By Mouth 2 times a day Unchanged albuterol (Albuterol (Eqv-ProAir HFA) 90 mcg/ inh inhalation aerosol) Inhalation Every 6 hours Unchanged amphetamine-dextroamphetamine (Adderall 30 mg oral tablet) 1 Tablets By Mouth 2 times a day Unchanged baclofen (baclofen 10 mg Tab) 1 Tablets By Mouth 3 times a day as needed Unchanged diclofenac (diclofenac potassium 25 mg oral tablet) By Mouth 2 times a day Unchanged dicyclomine (dicyclomine 10 mg Cap) 1 Capsules By Mouth 4 times a day as needed Unchanged duloxetine (Cymbalta 60 mg Cap-DR) 60 Milligram By Mouth 2 times a day Unchanged ferrous sulfate (ferrous sulfate 325 mg Tab) 1 Tablets By Mouth 2 times a day Pre-op exam Fatigue Low hemoglobin Screening for hyperlipidemia Supraspinatus tendon rupture Left shoulder pain Major depressive disorder, recurrent episode, mild BMI 24.0-24.9, adult Unchanged fluoride topical (Biotene) By Mouth 2 times a day Unchanged fluoxetine (FLUoxetine 20 mg Cap) 2 Capsules By Mouth Every day Unchanged fluticasone-salmeterol (Advair Diskus 500 mcg-50 mcg inhalation powder) See instructions use twice a day Unchanged lansoprazole (lansoprazole 30 mg Cap-DR) 1 Capsules By Mouth Every day Unchanged lorazepam (LORazepam 0.5 mg Tab) 1 Tablets By Mouth 2 times a day as needed Unchanged Misc Prescription (vitamin b) 0 Unchanged Non-Formulary Medication (multivitamin) Unchanged Non-Formulary Medication (OTC iron +C) Unchanged Non-Formulary Medication (thymamine) Unchanged promethazine (promethazine 25 mg Tab) See instructions use prn when active migraine Unchanged rimegepant (Nurtec ODT 75 mg oral tablet, disintegrating) See instructions Use as directed allow tablet to dissolve on tongue Unchanged tramadol (TraMADol (Eqv-Ultram ER) 300 mg/ 24 hours oral tablet, extended release) 1 Tablets By Mouth Every day Allergies Moderna COVID-19 (6m-5y) Bivalent Booster Vaccine PF (Unknown) flu vaccines (Unknown) Dilaudid (Unknown) codeine (Unknown) celecoxib (Unknown) sulfa drugs (Unknown) Problems Ongoing - Any problem that you are currently receiving treatment for. Acute stress disorder ADHD Body mass index [BMI] 23.0-23.9, adult Cigarette nicotine dependence with nicotine-induced disorder Colon cancer screening Degeneration of cervical intervertebral disc Depression with anxiety Derangement of knee Diverticulitis of large intestine EBV (Will-Horne virus) Fatigue GERD (gastroesophageal reflux disease) Left shoulder pain Low hemoglobin Major depressive disorder, recurrent episode, mild Migraine Neck pain Physical exam Pre-op exam Rib fractures Sciatica Screening for hyperlipidemia Skin infection Supraspinatus tendon rupture Historical - Any problem that you are no longer receiving treatment for. BMI 24.0-24.9, adult BMI 25.0-25.9,adult Breast cancer screening Patient Survey You may receive a survey via text or e-mail asking about your office visit. Please share your experience with us by completing your survey. We appreciate your feedback and thank you for choosing us for your care. Education Materials Chronic Migraine Headache A migraine headache is throbbing pain that is usually on one side of the head. It can also cause other symptoms. A migraine is called a chronic migraine if it happens at least 15 days in a month for more than 3 months. Talk with your doctor about what things may bring on (trigger) your migraines. What are the causes? The exact cause of a migraine is not known. This condition may be brought on or caused by: ??? Smoking. ??? Some medicines, such as control or some blood pressure medicines. ??? Certain substances in some foods or drinks. ??? Foods and drinks, such as: ? Cheese. ? Chocolate. ? Alcohol. ? Caffeine. Other things that may bring on a migraine include: ??? Periods. ??? Stress. ??? Getting too much or too little sleep. ??? Feeling tired (fatigue). ??? Bright lights or loud noises. ??? Certain smells. ??? Weather changes and being at high altitude. What increases the risk? The following factors may make you more likely to have chronic migraines: ??? Having migraines or family members who have them. ??? Having a mental health condition, such as being sad (depressed) or feeling worried or nervous (anxious). ??? Taking a lot of pain medicine. ??? Having sleep problems. ??? Having heart disease, diabetes, or being very overweight (obese). What are the signs or symptoms? Symptoms vary for each person. The pain may: ??? Feel like it is pulsing or throbbing. ??? Happen only on one side of the head. In some cases, the pain may be on both sides of the head or around the head or neck. ??? Be so bad that it keeps you from doing daily activities. ??? Get worse with activity. ??? Make you feel like you may vomit (feel nauseous) or vomit. ??? Get worse around bright lights, loud noises, or smells. ??? Cause you to feel dizzy. A sign that you may have chronic migraines is when you start to have more and more migraines. How is this treated? This condition is treated with medicines that: ??? Lessen pain and the feeling like you may vomit. ??? Prevent migraines. Treatment may also include: ??? Acupuncture. ??? Changes to your diet or sleep. ??? Relaxation training. ??? Learning ways to control your body and breathing (biofeedback). ??? Talk therapy to help you know and deal with negative thoughts (cognitive behavioral therapy). ??? Using a device that gives electrical stimulation to your nerves, which can help take away pain. ??? A shot of medicine into the muscles of the face or head. ??? Surgery, if the other treatments do not work. Follow these instructions at home: Medicines ??? Take [id number] and prescription medicines only as told by your doctor. ??? Ask your doctor if the medicine prescribed to you requires you to avoid driving or using machinery. Lifestyle ??? Do not drink alcohol. ??? Do not smoke or use any products that contain nicotine or tobacco. If you need help quitting, ask your doctor. ??? Get 7-9 hours of sleep every night, or the amount of sleep recommended by your doctor. ??? Lower the stress in your life. Ask your doctor about ways to do this. ??? Stay at a healthy weight. Talk with your doctor if you need help losing weight. ??? Get regular exercise. General instructions ??? Keep a journal to find out if certain things bring on migraines. This can help you avoid those things. For example, write down: ? What you eat and drink. ? How much sleep you get. ? Any change to your diet or medicines. ??? Lie down in a dark, quiet room when you have a migraine. ??? Try placing a cool towel over your head when you have a migraine. ??? Keep lights dim if bright lights bother you or make your migraines worse. Where to find more information ??? Coalition for Headache and Migraine Patients (CHAMP): headachemigraine.org ??? [place] Migraine Foundation: americanmigrainefoundation.org ??? National Headache Foundation: headaches.org Contact a doctor if: ??? Medicine does not help your migraine. ??? Your pain keeps coming back even with medicine. Get help right away if: ??? Your migraine becomes really bad and medicine does not help. ??? You have a fever or stiff neck. ??? You have trouble seeing. ??? Your muscles are weak or you lose control of them. ??? You lose your balance or have trouble walking. ??? You feel like you may faint or you faint. ??? You start having sudden, very bad headaches. ??? You have a seizure. This information is not intended to replace advice given to you by your health care provider. Make sure you discuss any questions you have with your health care provider. Document Revised: 09/21/2022 Document Reviewed: 09/21/2022 [employer] Patient Education ??? 2023 [employer] Steps to Quit Smoking Smoking tobacco is the leading cause of preventable . It can affect almost every organ in the body. Smoking puts you and people around you at risk for many serious, long-lasting (chronic) diseases. Quitting smoking can be hard, but it is one of the best things that you can do for your health. It is never too late to quit. Do not give up if you cannot quit the first time. Some people need to try many times to quit. Do your best to stick to your quit plan, and talk with your doctor if you have any questions or concerns. How do I get ready to quit? Pick a date to quit. Set a date within the next 2 weeks to give you time to prepare. ??? Write down the reasons why you are quitting. Keep this list in places where you will see it often. ??? Tell your family, friends, and co-workers that you are quitting. Their support is important. ??? Talk with your doctor about the choices that may help you quit. ??? Find out if your health insurance will pay for these treatments. ??? Know the people, places, things, and activities that make you want to smoke (triggers). Avoid them. What first steps can I take to quit smoking? Throw away all cigarettes at home, at work, and in your car. ??? Throw away the things that you use when you smoke, such as ashtrays and lighters. ??? Clean your car. Empty the ashtray. ??? Clean your home, including curtains and carpets. What can I do to help me quit smoking? Talk with your doctor about taking medicines and seeing a counselor. You are more likely to succeed when you do both. If you are or : ??? Talk with your doctor about counseling or other ways to quit smoking. ??? Do not take medicine to help you quit smoking unless your doctor tells you to. Quit right away ??? Quit smoking completely, instead of slowly cutting back on how much you smoke over a period of time. Stopping smoking right away may be more successful than slowly quitting. ??? Go to counseling. In-person is best if this is an option. You are more likely to quit if you go to counseling sessions regularly. Take medicine You may take medicines to help you quit. Some medicines need a prescription, and some you can buy [id number]. Some medicines may contain a drug called nicotine to replace the nicotine in cigarettes. Medicines may: ??? Help you stop having the desire to smoke (cravings). ??? Help to stop the problems that come when you stop smoking (withdrawal symptoms). Your doctor may ask you to use: ??? Nicotine patches, gum, or lozenges. ??? Nicotine inhalers or sprays. ??? Non-nicotine medicine that you take by mouth. Find resources Find resources and other ways to help you quit smoking and remain smoke-free after you quit. They include: ??? Online chats with a counselor. ??? Phone quitlines. ??? Printed self-help materials. ??? Support groups or group counseling. ??? Text messaging programs. ??? Mobile phone apps. Use apps on your mobile phone or tablet that can help you stick to your quit plan. Examples of free services include Quit Guide from the CDC and smokefree.gov What can I do to make it easier to quit? Talk to your family and friends. Ask them to support and encourage you. ??? Call a phone quitline, such as 9-121-HFRIKulv Travel AgencyNOW, reach out to support groups, or work with a counselor. ??? Ask people who smoke to not smoke around you. ??? Avoid places that make you want to smoke, such as: ? Bars. ? Parties. ? Smoke-break areas at work. ??? Spend time with people who do not smoke. ??? Lower the stress in your life. Stress can make you want to smoke. Try these things to lower stress: ? Getting regular exercise. ? Doing deep-breathing exercises. ? Doing yoga. ? Meditating. What benefits will I see if I quit smoking? Over time, you may have: ??? A better sense of smell and taste. ??? Less coughing and sore throat. ??? A slower heart rate. ??? Lower blood pressure. ??? Clearer skin. ??? Better breathing. ??? Fewer sick days. Summary ??? Quitting smoking can be hard, but it is one of the best things that you can do for your health. ??? Do not give up if you cannot quit the first time. Some people need to try many times to quit. ??? When you decide to quit smoking, make a plan to help you succeed. ??? Quit smoking right away, not slowly over a period of time. ??? When you start quitting, get help and support to keep you smoke-free. This information is not intended to replace advice given to you by your health care provider. Make sure you discuss any questions you have with your health care provider. Document Revised: 01/16/2022 Document Reviewed: 01/16/2022 [employer] Patient Education ??? 2023 [employer] Health Risks of Smoking Smoking tobacco is very bad for your health. Tobacco smoke contains many toxic chemicals that can damage every part of your body. Secondhand smoke can be harmful to those around you. Tobacco or nicotine use can cause many long-term (chronic) diseases. Smoking is difficult to quit because a chemical in tobacco, called nicotine, causes addiction or dependence. When you smoke and inhale, nicotine is absorbed quickly into your bloodstream through your lungs. Both inhaled and non-inhaled nicotine may be addictive. How can quitting affect me? There are health benefits of quitting smoking. Some benefits happen right away and others take time. Benefits may include: ??? Blood flow, blood pressure, heart rate, and lung capacity may begin to improve. However, any lung damage that has already occurred cannot be repaired. ??? Respiratory symptoms from smoking, such as nasal congestion and cough, may improve over time. ??? Your risk of heart disease, stroke, and cancer is reduced. ??? The overall quality of your health may improve. ??? You may save money, as you will not spend money on tobacco products and may spend less money on smoking-related health issues. What can increase my risk? Smoking harms nearly every organ in the body. People who smoke tobacco have a shorter life expectancy and an increased risk of many serious medical problems. These include: ??? More respiratory infections, such as colds and pneumonia. ??? Cancer. ??? Heart disease. ??? Stroke. ??? Chronic respiratory diseases. ??? Delayed wound healing and increased risk of complications during surgery. ??? Problems with reproduction, , and childbirth, such as infertility, early (premature) births, stillbirths, and defects. Secondhand smoke exposure to children increases the risk of: ??? Sudden infant syndrome (SIDS). ??? Infections in the nose, throat, or airways (respiratory infections). ??? Chronic respiratory symptoms. What actions can I take to quit? Smoking is an addiction that affects both your body and your mind, and long-time habits can be hard to change. Your health care provider can recommend: ??? Nicotine replacement products, such as patches, gum, and nasal sprays. Use these products only as directed. Do not replace cigarette smoking with electronic cigarettes, which are commonly called e-cigarettes. The safety of e-cigarettes is not known, and some may contain harmful chemicals. ??? Programs and community resources, which may include group support, education, or talk therapy. ??? Prescription medicines to help reduce cravings. ??? A combination of two or more quit methods, which may increase the success of quitting. Where to find support Follow the recommendations from your health care provider about support groups and other assistance. You can also visit: ??? [place]. Department of Health and Human Services: www.smokefree.gov ??? [place] Lung Association: www.freedomfromsmoking.org ??? [place] Heart Association: www.heart.org Where to find more information ??? Centers for Disease Control and Prevention: www.cdc.gov ??? World Health Organization: www.who.int Summary ??? Smoking tobacco is very bad for your health. Tobacco smoke contains many toxic chemicals that can damage every part of the body. ??? Smoking is difficult to quit because a chemical in tobacco, called nicotine, causes addiction or dependence. ??? There are immediate and long-term health benefits of quitting smoking. ??? A combination of two or more quit methods may increase the success of quitting. This information is not intended to replace advice given to you by your health care provider. Make sure you discuss any questions you have with your health care provider. Document Revised: 01/27/2022 Document Reviewed: 01/27/2022 [employer] Patient Education ??? 2023 [employer] Attention Deficit Hyperactivity Disorder, Adult Attention deficit hyperactivity disorder (ADHD) is a mental health disorder that starts during childhood. For many people with ADHD, the disorder continues into the adult years. Treatment can help you manage your symptoms. There are three main types of ADHD: ??? Inattentive. With this type, adults have difficulty paying attention. This may affect cognitive abilities. ??? Hyperactive-impulsive. With this type, adults have a lot of energy and have difficulty controlling their behavior. ??? Combination type. Some people may have symptoms of both types. What are the causes? The exact cause of ADHD is not known. Most experts believe a person's genes and environment possibly contribute to ADHD. What increases the risk? The following factors may make you more likely to develop this condition: ??? Having a first-degree relative such as a parent, brother, or sister, with the condition. ??? Being born before 37 weeks of (prematurely) or at a low weight. ??? Being born to a mother who smoked tobacco or drank alcohol during . ??? Having experienced a brain injury. ??? Being exposed to lead or other toxins in the womb or early in life. What are the signs or symptoms? Symptoms of this condition depend on the type of ADHD. Symptoms of the inattentive type include: ??? Difficulty paying attention or following instructions. ??? Often making simple mistakes. ??? Being disorganized. ??? Avoiding tasks that require time and attention. ??? Losing and forgetting things. Symptoms of the hyperactive-impulsive type include: ??? Restlessness. ??? Talking out of turn, interrupting others, or talking too much. ??? Difficulty with: ? Sitting still. ? Feeling motivated. ? Relaxing. ? Waiting in line or waiting for a turn. People with the combination type have symptoms of both of the other types. In adults, this condition may lead to certain problems, such as: ??? Keeping jobs. ??? Performing tasks at work. ??? Having stable relationships. ??? Being on time or keeping to a schedule. How is this diagnosed? This condition is diagnosed based on your current symptoms and your history of symptoms. The diagnosis can be made by a health care provider such as a primary care provider or a mental health housekeeper child care. Your health care provider may use a symptom checklist or a behavior rating scale to evaluate your symptoms. Your health care provider may also want to talk with people who have observed your behaviors throughout your life. How is this treated? This condition can be treated with medicines and behavior therapy. Medicines may be the best option to reduce impulsive behaviors and improve attention. Your health care provider may recommend: ??? Stimulant medicines. These are the most common medicines used for adult ADHD. They affect certain chemicals in the brain (neurotransmitters) and improve your ability to control your symptoms. ??? A non-stimulant medicine. These medicines can also improve focus, attention, and impulsive behavior. It may take weeks to months to see the effects of this medicine. Counseling and behavioral management are also important for treating ADHD. Counseling is often used along with medicine. Your health care provider may suggest: ??? Cognitive behavioral therapy (CBT). This type of therapy teaches you to replace negative thoughts and actions with positive thoughts and actions. When used as part of ADHD treatment, this therapy may also include: ? Coping strategies for organization, time management, impulse control, and stress reduction. ? Mindfulness and meditation training. ??? Behavioral management. You may work with a math coach who is specially trained to help people with ADHD manage and organize activities and function more effectively. Follow these instructions at home: Medicines ??? Take [id number]-zznghrc and prescription medicines only as told by your health care provider. ??? Talk with your health care provider about the possible side effects of your medicines and how to manage them. Alcohol use ??? Do not drink alcohol if: ? Your health care provider tells you not to drink. ? You are , may be , or are planning to become . ??? If you drink alcohol: ? Limit how much you use to: ? 0???1 drink a day for women. ? 0???2 drinks a day for men. ? Know how much alcohol is in your drink. In the [place] one drink equals one 12 oz bottle of beer (355 mL), one 5 oz glass of wine (148 mL), or one 1??? oz glass of hard liquor (44 mL). Lifestyle ??? Do not use illegal drugs. ??? Get enough sleep. ??? Eat a healthy diet. ??? Exercise regularly. Exercise can help to reduce stress and anxiety. General instructions ??? Learn as much as you can about adult ADHD, and work closely with your health care providers to find the treatments that work best for you. ??? Follow the same schedule each day. ??? Use reminder devices like notes, calendars, and phone apps to stay on time and organized. ??? Keep all follow-up visits. Your health care provider will need to monitor your condition and adjust your treatment over time. Where to find more information A health care provider may be able to recommend resources that are available online or over the phone. You could start with: ??? Attention Deficit Disorder Association (ADDA): add.org ??? [facility] (NIMH): nimh.nih.gov Contact a health care provider if: ??? Your symptoms continue to cause problems. ??? You have side effects from your medicine, such as: ? Repeated muscle twitches, coughing, or speech outbursts. ? Sleep problems. ? Loss of appetite. ? Dizziness. ? Unusually fast heartbeat. ? Stomach pains. ? Headaches. ??? You are struggling with anxiety, depression, or substance abuse. Get help right away if: ??? You have a severe reaction to a medicine. This symptom may be an emergency. Get help right away. Call 911. ??? Do not wait to see if the symptom will go away. ??? Do not drive yourself to the hospital. Take one of these steps if you feel like you may hurt yourself or others, or have thoughts about taking your own life: ??? Go to your nearest emergency room. ??? Call 911. ??? Call the National Suicide Prevention Lifeline at or 157. This is open 24 hours a day ??? Text the Crisis Text Line at 001456. Summary ??? ADHD is a mental health disorder that starts during childhood and often continues into your adult years. ??? The exact cause of ADHD is not known. Most experts believe genetics and environmental factors contribute to ADHD. ??? There is no cure for ADHD, but treatment with medicine, cognitive behavioral therapy, or behavioral management can help you manage your condition. This information is not intended to replace advice given to you by your health care provider. Make sure you discuss any questions you have with your health care provider. Document Revised: 05/15/2022 Document Reviewed: 05/15/2022 [employer] Patient Education ??? 2023 [employer] Heartburn Heartburn is a type of pain or discomfort that can happen in the throat or chest. It is often described as a burning pain. It may also cause a bad, acid-like taste in the mouth. Heartburn may feel worse when you lie down or bend over, and it is often worse at night. Heartburn may be caused by stomach contents that move back up into the esophagus (reflux). Follow these instructions at home: Eating and drinking ??? Avoid certain foods and drinks as told by your health care provider. This may include: ? Coffee and tea, with or without caffeine. ? Drinks that contain alcohol. ? Energy drinks and sports drinks. ? Carbonated drinks or sodas. ? Chocolate and cocoa. ? Peppermint and mint flavorings. ? Garlic and onions. ? Horseradish. ? Spicy and acidic foods, including peppers, chili powder, darby powder, vinegar, hot sauces, and barbecue sauce. ? Love fruit juices and citrus fruits, such as oranges, diane, and limes. ? Tomato-based foods, such as red sauce, chili, salsa, and pizza with red sauce. ? Fried and fatty foods, such as donuts, kenyan fries, potato chips, and high-fat dressings. ? High-fat meats, such as hot dogs and fatty cuts of red and white meats, such as rib eye steak, sausage, ham, and rosas. ? High-fat dairy items, such as whole milk, butter, and cream cheese. ??? Eat small, frequent meals instead of large meals. ??? Avoid drinking large amounts of liquid with your meals. ??? Avoid eating meals during the 2???3 hours before bedtime. ??? Avoid lying down right after you eat. ??? Do not exercise right after you eat. Lifestyle ??? If you are overweight, reduce your weight to an amount that is healthy for you. Ask your health care provider for guidance about a safe weight loss goal. ??? Do not use any products that contain nicotine or tobacco. These products include cigarettes, chewing tobacco, and vaping devices, such as e-cigarettes. These can make symptoms worse. If you need help quitting, ask your health care provider. ??? Wear loose-fitting clothing. Do not wear anything tight around your waist that causes pressure on your abdomen. ??? Raise (elevate) the head of your bed about 6 inches (15 cm) when you sleep. You can use a wedge to do this. ??? Try to reduce your stress, such as with yoga or meditation. If you need help reducing stress, ask your health care provider. Medicines ??? Take kwbb-eqh-vvabkhf and prescription medicines only as told by your health care provider. ??? Do not take aspirin or NSAIDs, such as ibuprofen, unless your health care provider told you to do so. ??? Stop medicines only as told by your health care provider. If you stop taking some medicines too quickly, your symptoms may get worse. General instructions ??? Pay attention to any changes in your symptoms. ??? Keep all follow-up visits. This is important. Contact a health care provider if: ??? You have new symptoms. ??? You have unexplained weight loss. ??? You have difficulty swallowing, or it hurts to swallow. ??? You have wheezing or a persistent cough. ??? Your symptoms do not improve with treatment. ??? You have frequent heartburn for more than 2 weeks. Get help right away if: ??? You suddenly have pain in your arms, neck, jaw, teeth, or back. ??? You suddenly feel sweaty, dizzy, or light-headed. ??? You have chest pain or shortness of breath. ??? You vomit and your vomit looks like blood or coffee grounds. ??? Your stool is bloody or black. These symptoms may represent a serious problem that is an emergency. Do not wait to see if the symptoms will go away. Get medical help right away. Call your local emergency services (911 in the [place] Do not drive yourself to the hospital. Summary ??? Heartburn is a type of pain or discomfort that can happen in the throat or chest. It is often described as a burning pain. It may also cause a bad, acid-like taste in the mouth. ??? Avoid certain foods and drinks as told by your health care provider. ??? Take fsma-rdo-ssibtts and prescription medicines only as told by your health care provider. Do not take aspirin or NSAIDs, such as ibuprofen, unless your health care provider told you to do so. ??? Contact a health care provider if your symptoms do not improve or they get worse. This information is not intended to replace advice given to you by your health care provider. Make sure you discuss any questions you have with your health care provider. Document Revised: 07/31/2020 Document Reviewed: 07/31/2020 [employer] Patient Education ??? 2023 [employer] Managing Depression, Adult Depression is a mental health condition that affects your thoughts, feelings, and actions. Being diagnosed with depression can bring you relief if you did not know why you have felt or behaved a certain way. It could also leave you feeling overwhelmed. Finding ways to manage your symptoms can help you feel more positive about your future. How to manage lifestyle changes Being depressed is difficult. Depression can increase the level of everyday stress. Stress can make depression symptoms worse. You may believe your symptoms cannot be managed or will never improve. However, there are many things you can try to help manage your symptoms. There is hope. Managing stress Stress is your body's reaction to life changes and events, both good and bad. Stress can add to your feelings of depression. Learning to manage your stress can help lessen your feelings of depression. Try some of the following approaches to reducing your stress (stress reduction techniques): ??? Listen to music that you enjoy and that inspires you. ??? Try using a meditation jodee or take a meditation class. ??? Develop a practice that helps you connect with your spiritual self. Walk in nature, pray, or go to a place of rastafari. ??? Practice deep breathing. To do this, inhale slowly through your nose. Pause at the top of your inhale for a few seconds and then exhale slowly, letting yourself relax. Repeat this three or four times. ??? Practice yoga to help relax and work your muscles. Choose a stress reduction technique that works for you. These techniques take time and practice to develop. Set aside 5???15 minutes a day to do them. Therapists can offer training in these techniques. Do these things to help manage stress: ??? Keep a journal. ??? Know your limits. Set healthy boundaries for yourself and others, such as saying no when you think something is too much. ??? Pay attention to how you react to certain situations. You may not be able to control everything, but you can change your reaction. ??? Add humor to your life by watching funny movies or shows. ??? Make time for activities that you enjoy and that relax you. ??? Spend less time using electronics, especially at night before bed. The light from screens can make your brain think it is time to get up rather than go to bed. Medicines Medicines, such as antidepressants, are often a part of treatment for depression. ??? Talk with your pharmacist or health care provider about all the medicines, supplements, and herbal products that you take, their possible side effects, and what medicines and other products are safe to take together. ??? Make sure to report any side effects you may have to your health care provider. Relationships Your health care provider may suggest family therapy, couples therapy, or individual therapy as part of your treatment. How to recognize changes Everyone responds differently to treatment for depression. As you recover from depression, you may start to: ??? Have more interest in doing activities. ??? Feel more hopeful. ??? Have more energy. ??? Eat a more regular amount of food. ??? Have better mental focus. It is important to recognize if your depression is not getting better or is getting worse. The symptoms you had in the beginning may return, such as: ??? Feeling tired. ??? Eating too much or too little. ??? Sleeping too much or too little. ??? Feeling restless, agitated, or hopeless. ??? Trouble focusing or making decisions. ??? Having unexplained aches and pains. ??? Feeling irritable, angry, or aggressive. If you or your family members notice these symptoms coming back, let your health care provider know right away. Follow these instructions at home: Activity ??? Try to get some form of exercise each day, such as walking. ??? Try yoga, mindfulness, or other stress reduction techniques. ??? Participate in group activities if you are able. Lifestyle ??? Get enough sleep. ??? Cut down on or stop using caffeine, tobacco, alcohol, and any other harmful substances. ??? Eat a healthy diet that includes plenty of vegetables, fruits, whole grains, low-fat dairy products, and lean protein. Limit foods that are high in solid fats, added sugar, or salt (sodium). General instructions ??? Take pkxf-jsh-fgisudv and prescription medicines only as told by your health care provider. ??? Keep all follow-up visits. It is important for your health care provider to check on your mood, behavior, and medicines. Your health care provider may need to make changes to your treatment. Where to find support Talking to others Friends and family members can be sources of support and guidance. Talk to trusted friends or family members about your condition. Explain your symptoms and let them know that you are working with a health care provider to treat your depression. Tell friends and family how they can help. Finances ??? Find mental health providers that fit with your financial situation. ??? Talk with your health care provider if you are worried about access to food, housing, or medicine. ??? Call your insurance company to learn about your co-pays and prescription plan. Where to find more information You can find support in your area from: ??? Anxiety and Depression Association of [place] (ADAA): adaa.org ??? Mental Health [place]: mentalhealthamerica.net ??? National [place] on Mental Illness: elisabet.org Contact a health care provider if: ??? You stop taking your antidepressant medicines, and you have any of these symptoms: ? Nausea. ? Headache. ? Light-headedness. ? Chills and body aches. ? Not being able to sleep (insomnia). ??? You or your friends and family think your depression is getting worse. Get help right away if: ??? You have thoughts of hurting yourself or others. Get help right away if you feel like you may hurt yourself or others, or have thoughts about taking your own life. Go to your nearest emergency room or: ??? Call 911. ??? Call the National Suicide Prevention Lifeline at or 788. This is open 24 hours a day. ??? Text the Crisis Text Line at 155979. This information is not intended to replace advice given to you by your health care provider. Make sure you discuss any questions you have with your health care provider. Document Revised: 06/02/2022 Document Reviewed: 06/02/2022 [employer] Patient Education ??? 2023 [employer] Managing Anxiety, Adult After being diagnosed with anxiety, you may be relieved to know why you have felt or behaved a certain way. You may also feel overwhelmed about the treatment ahead and what it will mean for your life. With care and support, you can manage your anxiety. How to manage lifestyle changes Understanding the difference between stress and anxiety Although stress can play a role in anxiety, it is not the same as anxiety. Stress is your body's reaction to life changes and events, both good and bad. Stress is often caused by something external, such as a deadline, test, or competition. It normally goes away after the event has ended and will last just a few hours. But, stress can be ongoing and can lead to more than just stress. Anxiety is caused by something internal, such as imagining a terrible outcome or worrying that something will go wrong that will greatly upset you. Anxiety often does not go away even after the event is over, and it can become a long-term (chronic) worry. Lowering stress and anxiety Talk with your health care provider or a counselor to learn more about lowering anxiety and stress. They may suggest tension-reduction techniques, such as: ??? Music. Spend time creating or listening to music that you enjoy and that inspires you. ??? Mindfulness-based meditation. Practice being aware of your normal breaths while not trying to control your breathing. It can be done while sitting or walking. ??? Centering prayer. Focus on a word, phrase, or sacred image that means something to you and brings you peace. ??? Deep breathing. Expand your stomach and inhale slowly through your nose. Hold your breath for 3???5 seconds. Then breathe out slowly, letting your stomach muscles relax. ??? Self-talk. Learn to notice and spot thought patterns that lead to anxiety reactions. Change those patterns to thoughts that feel peaceful. ??? Muscle relaxation. Take time to tense muscles and then relax them. Choose a tension-reduction technique that fits your lifestyle and personality. These techniques take time and practice. Set aside 5???15 minutes a day to do them. Specialized therapists can offer counseling and training in these techniques. The training to help with anxiety may be covered by some insurance plans. Other things you can do to manage stress and anxiety include: ??? Keeping a stress diary. This can help you learn what triggers your reaction and then learn ways to manage your response. ??? Thinking about how you react to certain situations. You may not be able to control everything, but you can control your response. ??? Making time for activities that help you relax and not feeling guilty about spending your time in this way. ??? Doing visual imagery. This involves imagining or creating mental pictures to help you relax. ??? Practicing yoga. Through yoga poses, you can lower tension and relax. Medicines Medicines for anxiety include: ??? Antidepressant medicines. These are usually prescribed for long-term daily control. ??? Anti-anxiety medicines. These may be added in severe cases, especially when panic attacks occur. When used together, medicines, psychotherapy, and tension-reduction techniques may be the most effective treatment. Relationships Relationships can play a big part in helping you recover. Spend more time connecting with trusted friends and family members. Think about going to couples counseling if you have a partner, taking family education classes, or going to family therapy. Therapy can help you and others better understand your anxiety. How to recognize changes in your anxiety Everyone responds differently to treatment for anxiety. Recovery from anxiety happens when symptoms lessen and stop interfering with your daily life at home or work. This may mean that you will start to: ??? Have better concentration and focus. Worry will interfere less in your daily thinking. ??? Sleep better. ??? Be less irritable. ??? Have more energy. ??? Have improved memory. Try to recognize when your condition is getting worse. Contact your provider if your symptoms interfere with home or work and you feel like your condition is not improving. Follow these instructions at home: Activity ??? Exercise. Adults should: ? Exercise for at least 150 minutes each week. The exercise should increase your heart rate and make you sweat (moderate-intensity exercise). ? Do strengthening exercises at least twice a week. ??? Get the right amount and quality of sleep. Most adults need 7???9 hours of sleep each night. Lifestyle ??? Eat a healthy diet that includes plenty of vegetables, fruits, whole grains, low-fat dairy products, and lean protein. ? Do not eat a lot of foods that are high in fats, added sugars, or salt (sodium). ??? Make choices that simplify your life. ??? Do not use any products that contain nicotine or tobacco. These products include cigarettes, chewing tobacco, and vaping devices, such as e-cigarettes. If you need help quitting, ask your provider. ??? Avoid caffeine, alcohol, and certain pvnj-som-codhnfd cold medicines. These may make you feel worse. Ask your pharmacist which medicines to avoid. General instructions ??? Take rlwi-gyy-qthgovt and prescription medicines only as told by your provider. ??? Keep all follow-up visits. This is to make sure you are managing your anxiety well or if you need more support. Where to find support You can get help and support from: ??? Self-help groups. ??? Online and community organizations. ??? A trusted spiritual leader. ??? Couples counseling. ??? Family education classes. ??? Family therapy. Where to find more information You may find that joining a support group helps you deal with your anxiety. The following sources can help you find counselors or support groups near you: ??? Mental Health [place]: mentalEnvie de [place].net ??? Anxiety and Depression Association of [place] (ADAA): adaa.org ??? National [place] on Mental Illness ([place]IS[place]ET): elisabet.org Contact a health care provider if: ??? You have a hard time staying focused or finishing tasks. ??? You spend many hours a day feeling worried about everyday life. ??? You are very tired because you cannot stop worrying. ??? You start to have headaches or often feel tense. ??? You have chronic nausea or diarrhea. Get help right away if: ??? Your heart feels like it is racing. ??? You have shortness of breath. ??? You have thoughts of hurting yourself or others. Get help right away if you feel like you may hurt yourself or others, or have thoughts about taking your own life. Go to your nearest emergency room or: ??? Call 911. ??? Call the National Suicide Prevention Lifeline at or 387. This is open 24 hours a day. ??? Text the Crisis Text Line at 876429. This information is not intended to replace advice given to you by your health care provider. Make sure you discuss any questions you have with your health care provider. Document Revised: 11/03/2022 Document Reviewed: 05/18/2021 [employer] Patient Education ??? 2023 [employer]. Patient Portal You may access all of your results and other medical record information on our secure patient portal. If you are not signed up for this yet, please contact [employer] at [phone] to get signed up today. Language Information Language assistance services are available as needed. FAMILY MEDICINE OFFICE/CLINI C NOTE Observed: 08/02/2024 1:00 PM Status: F Source: [facility] Family Medicine Office/Clini c Note Chief Complaint Initial Medicare Wellness Review of Systems PHQ Score Initial Depression Screen Score: 2 SCORE Physical Exam Vitals & Measurements HR: 90(Peripheral) BP: 104/56 SpO2: 98% HT: 68 in HT: 172.6 cm WT: 151.678 lb WT: 68.8 kg BMI: 23.09 Assessment/Plan 1. Encounter for Medicare annual examination with abnormal findings (Z00.01: Encounter for general adult medical examination with abnormal findings) Patient in office today for her Initial Medicare Wellness Visit. A customized and personalized print out of all the current AHRQ USPSTF???s recommendations for preventative services and all current CDC recommended immunizations, relevant risk recommendations and the following patient brochures were given. Reviewed What can I expect during my Medicare preventative care visit CDC-Falls Prevention and home safety screening reviewed. Patient reports 2 non injury falls in last 12 months, voices no worry about falling, exhibits no problems with sitting and standing. Pt voices understanding with keeping walk way area free of clutter to prevent tripping and/or falling. [place] Advance Directives reviewed, See #10 Immunization Record reviewed with the patient. Discussed Shingrix vaccine and availability, informational flyer provided to patient. 2 COVID vaccines have been administered. Allergies and medications reviewed and up to date. Patient denies concerns with taking medication as prescribed, reviewed OTC medications with patient with medication list up to date. Blood tests were reviewed: UTD. No family history of colon cancer. Patient had normal Cologuard test 09/18/2023. Last Mammogram was 05/28/2023, see #2. Reviewed concerns with bladder control over past 6 months with no concerns. Reviewed pain symptoms with patient: 07/18 generalized. Patient takes Ultram as directed and Tylenol as needed. Reviewed all outside providers that patient follows. Last visit summary notes available in chart and/or have been requested. Follow up scheduled: 08/14/2024 AWV has been scheduled: 08/02/2025 Abnormal findings with Depression screening: PHQ-9 12. See #3. Medicare provides yearly screening for alcohol and depression concerns. This is completed during our Medicare wellness visit for those who do not have a current diagnosis of depression or concerns with alcohol use. I spent a total of (12) minutes on this date of service which included preparing to see the patient, face to face patient care, completing clinical documentation, obtaining and/or reviewing separately obtained history, counseling and educating the patient with handouts. Explanations were provided with reviewing questionnaires. AUDIT risk assessment screening completed, risk score(0) with patient denying concerns with use. Completed PHQ-2 risk assessment for depression with risk score(2), PHQ-9 risk assessment score (12) findings. Patient has been reminded to notify the provider if there would be a change or concerns with symptoms with fear, unable to sleep, worrying too much or feeling down and/or sad with lost of interest with daily activities. Will continue to monitor with screening yearly during Medicare wellness visits. 2. Breast cancer screening by mammogram (Z12.31: Encounter for screening mammogram for malignant neoplasm of breast) Recommended mammogram screening discussed with patient during today's Medicare Wellness visit. Patient reminded with the importance of continued Breast Self-Awareness at home. Easy to read demonstration on how to perform a self breast exam: What to look for and feel for was reviewed and provided to patient. Mammogram ordered and has been scheduled 08/02/2024. Pt has been advised no deodorant, sprays or lotions. 3. Depression with anxiety (F41.8: Other specified anxiety disorders) Patient taking fluoxetine and Cymbalta daily, voices medication is effective. Follows up with PCP with medication management and symptom control. PHQ-9 risk assessment completed with positive findings. Total risk score is 12. Patient denies any suicidal ideations at this time. Reviewed additional signs/symptoms to monitor for and report to provider. Patient takes lorazepam prn. Patient reports that she does not take medication often because it makes her sleepy. ANIBAL-7 screening completed today with a score of (7). Follows with PCP as directed for management and symptom control. Denies any suicidal ideations at this time. Education provided, stress management and relaxation techniques reviewed. Will continue to follow with PCP and communicate any changes of increased anxiety. Reviewed additional signs/symptoms to monitor for and report to provider. 4. Acute stress disorder (F43.0: Acute stress reaction) See #3. Patient reports that she was seeing Dr. Ariel Castro at [facility], but is looking for a different psychiatrist. She has a call to her insurance who is trying to find an in network provider for patient. 5. 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 6. GERD (gastroesophageal reflux disease) (K21.9: Gastro-esophageal reflux disease without esophagitis) Patient is aware of diet changes with healthier eating habits, such as not eating late at night, losing or maintaining a healthy weight. Importance of not smoking and avoiding and/or reducing alcohol intake. Avoid tight clothing around the waist line and try to avoid spicy or high acid foods. Patient taking PPI medications as directed with symptom management. Reviewed nutrition therapy with recommended foods to help control your symptoms. 7. ADHD (F90.9: Attention-deficit hyperactivity disorder, unspecified type) Patient takes Adderall and follows up with pcp as directed. 8. Cigarette nicotine dependence with nicotine-induced disorder (F17.219: Nicotine dependence, cigarettes, with unspecified nicotine-induced disorders) Spent a total of 12 minutes on this date completing yearly Medicare wellness visit. This included preparing to see the patient, [id number] patient care, completing clinical documentation and reviewing preventative testings that are available. Patient has been smoking since she was 17. Patient has cut back and is now only smoking 1-2 cigarettes a day. Patient does occasionally vape. Patient previously had LDCT-scan 05/28/2023. We strongly recommend to quit tobacco use. Cigarette smoking harms nearly every organ of the body, causes many diseases, and reduces the health of smokers in general. Quitting smoking lowers your risk for smoking-related diseases and can add years to your life. We encourage you to visit www.smokefree.gov access to helpful resources including free telephone support. If you decide on prescription treatment to help you quit, we would be happy to provide these. 3-5 min. spent discussing this. Patient reports she does have nicotine patches at home. 9. Migraine (G43.909: Migraine, unspecified, not intractable, without status migrainosus) Patient reports that migraines are more controlled now that she gets Botox injections from neurology. Follows up as directed. 10. No advance directives (Z78.9: Other specified health status) Patient does not have advance directives and is not interested in them at this time. Patient understands that packet is available in office if she is to change her mind. Follow-up No qualifying data available Patient Education Chronic Migraine Headache, Yboy-wr-Njsi Steps to Quit Smoking, Enpn-tj-Tjow Health Risks of Smoking Attention Deficit Hyperactivity Disorder, Adult Heartburn Managing Depression, Adult Managing Anxiety, Adult Problem List/Past Medical History Ongoing Acute stress disorder ADHD Body mass index [BMI] 23.0-23.9, adult Cigarette nicotine dependence with nicotine-induced disorder Colon cancer screening Degeneration of cervical intervertebral disc Depression with anxiety Derangement of knee Diverticulitis of large intestine EBV (Will-Horne virus) Fatigue GERD (gastroesophageal reflux disease) Left shoulder pain Low hemoglobin Major depressive disorder, recurrent episode, mild Migraine Neck pain Physical exam Pre-op exam Rib fractures Sciatica Screening for hyperlipidemia Skin infection Supraspinatus tendon rupture Historical BMI 24.0-24.9, adult BMI 25.0-25.9,adult Breast cancer screening Procedure/Surgical History Tonsillectomy and adenoidectomy (06/2001), Surgery. Medications acyclovir 400 mg Tab, 400 mg= 1 tab(s), Oral, BID Adderall 30 mg oral tablet, 30 mg= 1 tab(s), Oral, BID Advair Diskus 500 mcg-50 mcg inhalation powder, See Instructions Albuterol (Eqv-ProAir HFA) 90 mcg/inh inhalation aerosol, Inhalation, q6hr baclofen 10 mg Tab, 10 mg= 1 tab(s), Oral, TID Biotene, Oral, BID Cymbalta 60 mg Cap-DR, 60 mg, Oral, BID diclofenac potassium 25 mg oral tablet, Oral, BID dicyclomine 10 mg Cap, 10 mg= 1 cap(s), Oral, QID ferrous sulfate 325 mg Tab, 325 mg= 1 tab(s), Oral, BID, 5 refills, Not taking FLUoxetine 20 mg Cap, 40 mg= 2 cap(s), Oral, Daily lansoprazole 30 mg Cap-DR, 30 mg= 1 cap(s), Oral, Daily, Still taking, not as prescribed: as needed LORazepam 0.5 mg Tab, 0.5 mg= 1 tab(s), Oral, BID multivitamin Nurtec ODT 75 mg oral tablet, disintegrating, See Instructions OTC iron +C promethazine 25 mg Tab, See Instructions thymamine TraMADol (Eqv-Ultram ER) 300 mg/24 hours oral tablet, extended release, 300 mg= 1 tab(s), Oral, Daily vitamin b, 0 Allergies Moderna COVID-19 (6m-5y) Bivalent Booster Vaccine PF (Unknown) flu vaccines (Unknown) Dilaudid (Unknown) codeine (Unknown) celecoxib (Unknown) sulfa drugs (Unknown) Social History Alcohol Never, 08/02/2024 Substance Abuse Never, 08/02/2024 Tobacco 4 or less cigarettes(less than 1/4 pack)/day in last 30 days Tobacco Use:. Former vaping or e-cigarette use Smokeless Tobacco Use:. Cigarettes, Started age 17.0 Years. Ready to change: Yes. Household tobacco concerns: Yes. Yes, 08/02/2024 Family History Dementia: Mother. Hypertension: Mother. Immunizations Vaccine Date Status SARS-CoV-2 (COVID-19) mRNA-1273 vaccine 03/20/2020 Recorded SARS-CoV-2 (COVID-19) mRNA-1273 vaccine 02/21/2020 Recorded measles/mumps/rubella virus vaccine 09/06/1996 Recorded Td(adult) unspecified formulation 08/28/1996 Recorded Result Comment: Electronical ly Signed By: Jennifer Heath\.br\Date and Time Signed: 08/02/24 16:53 EDT\.br\Electronically Co-Signed By: Tonya Snyder\.br\Date and Time Co-Signed: 08/02/24 16:05 EDT\.br\Electronically Co-Signed By: Tonya Snyder\.br\Date and Time Co-Signed: 08/02/24 16:07 EDT PROVIDER LETTER Observed: 06/19/2024 9:57 AM Status: F Source: [facility] Provider Letter [address] [place] [id number] June 19, 2024 MIROSLAVA TETO [address] [place] [address] : [address] Hernandez, The above patient has been evaluated at your request for preoperative clearance. After assessment of available pertinent labs and diagnostic tests, I feel this patient is medically optimized for surgery. I did some additional lab work and she has iron deficiency anemia. I ordered iron supplements for her to take twice a day. Final discretion of whether the patient is cleared for surgery remains up to the surgeon/anesthesiologist. Thank you, Jennifer Piper, PEDIATRIC ONCOLOGIST-C TIBC CALCULATED Collected: 06/15/2024 3:34 PM Status : F Source: [facility] TYPE CODE TESTS RESULT OUT OF RANGE REFERENCE UNITS LAB 2500-7([facility]) IRON BINDING CAPACITY:MCNC:P T:SER/PLAS:QN: 412 High 250-400 microgram /dL LAB [id number]([facility]) Transferrin 294 Normal 200-370 mg/d L Performed By: #### [id number] #### [facility] [address] [place] [address] VITAMIN D 25 HYDROXY Collected: 06/15/2024 3:34 PM S tatus: F Source: [facility] TYPE CODE TESTS RESULT OUT OF RANGE REFERENCE UNITS LAB 1988-04([facility]) CALCIDIOL:MCN C:PT:SER/PLAS :QN: 41.7 Normal 30.0-100.0 ng/mL Performed By: #### [id number] #### [facility] [address] [place] [address] LIPID PANEL Collected: 06/15/2024 3:34 PM Status: F Source: [facility] TYPE CODE TESTS RESULT OUT OF RANGE REFERENCE UNITS LAB 2092-04([facility]) CHOLESTEROL:M CNC:PT:SER/PL :QN: 223 High 120-200 mg/dL LAB 2084-10([facility]) CHOLESTEROL.I N HDL:MCNC:PT:S ER/PLAS:QN: 50 Unknown mg/dL Result Comment: '>= 60 LOW R ISK' '<= 40 HIGH RISK' LAB 2088-02([facility]) CHOLESTEROL.I N LDL:MCNC:PT:S ER/PLAS:QN: 190 High <=129 mg/dL LAB 2571-8([facility]) TRIGLYCERIDE: MCNC:PT:SER/P LAS:QN: 120 Normal <=149 mg/dL LAB 09846-5([facility]) CHOLESTEROL.I N VLDL:MCNC:PT: SER/PLAS:QN:C ALCULATED 24 Normal 7-40 mg/dL Performed By: #### [id number] # ### [facility] [address] [place] [address] IRON Collected: 3:34 PM Status: F Source: [facility] TYPE CODE TESTS RESULT OUT OF RANGE REFERENCE UNITS LAB 2498-4(LOINC) IRON:MCNC:PT :SER/PLAS:QN : 46 Normal 35-153 microgram/ dL Performed By: #### [id number] # ### [facility] [address] [place] [address] FERRITIN Collected: 06/15/2024 3:34 PM Status: F Source: [facility] TYPE CODE TESTS RESULT OUT OF RANGE REFERENCE UNITS LAB 2276-4(LOINC) FERRITIN:MCNC :PT:SER/PLAS: QN: 6 Low 11-307 ng/mL Performed By: #### [id number] # ### [facility] [address] [place] [id number] TSH Collected: 3:34 PM Status: F Source: [facility] TYPE CODE TESTS RESULT OUT OF RANGE REFERENCE UNITS LAB 3016-3(LOINC) THYROTROPIN: ACNC:PT:SER/ PLAS:QN: 1.51 Normal 0.34-5.60 mcIU/mL Performed By: #### [id number] # ### [facility] [address] [place] [address] FAMILY MEDICINE OFFICE/CLINI C NOTE Observed: 06/15/2024 1:39 PM Status: F Source: [facility] Family Medicine Office/Clini c Note HPI Staff Miroslava is a 58 year old female presenting with needing surgical clearance Dr. Lee [facility] Left shoulder abnormal labs they will not schedule her surgery yet until she was seen for her abnormal blood work History of Present Illness pt presents today for pre op clearance. Review of Systems PHQ Score Initial Depression Screen Score: 0 SCORE Physical Exam Vitals & Measurements T: 36.4 ???C(Oral) HR: 86(Peripheral) RR: 20 BP: 96/64 SpO2: 100% HT: 172.6 cm HT: 68 in WT: 159.394 lb WT: 72.3 kg BMI: 24.27 General: alert, no acute distress ENMT: oral mucosa moist, no pharyngeal erythema or exudate Cardiovascular: regular rate and rhythm, normal peripheral perfusion Respiratory: Lungs CTA, respirations non labored Extremities: no deformity, no trauma Neurological: oriented x 4, LOC appropriate for age, CN II-XII intact, motor strength equal & normal bilaterally, speech normal Assessment/Plan 1. Pre-op exam (Z01.818: Encounter for other preprocedural examination) pt plans to have surgery on his shoulder in [place] by Dr. Hernandez. had ekg and labs. ekg was normal sinus rhythm. HGB and HCT were a little low. pt is going to take iron OTC. pt will return for well woman visit. will need mammogram and dexa scan ordered. Ordered: XR Chest 2 Views 2. Fatigue (R53.83: Other fatigue) pt c/o severe fatigue. pt says something is just not right. reviewed the most recent labs. will draw iron studies and vitamin D and TSH in office today. Ordered: Ferritin Iron Level Lipid Panel Thyroid Stimulating Hormone TIBC Calculated Vitamin D 25 Hydroxy XR Chest 2 Views 3. Low hemoglobin (D64.9: Anemia, unspecified) will draw labs. pt will start OTC iron. Ordered: Ferritin Iron Level Lipid Panel Thyroid Stimulating Hormone TIBC Calculated Vitamin D 25 Hydroxy 4. Screening for hyperlipidemia (Z13.220: Encounter for screening for lipoid disorders) lipid panel drawn today. Ordered: Ferritin Iron Level Lipid Panel Thyroid Stimulating Hormone TIBC Calculated Vitamin D 25 Hydroxy 5. Supraspinatus tendon rupture (S46.092A: Other injury of muscle(s) and tendon(s) of the rotator cuff of left shoulder, initial encounter) pt has a tear that will be surgically repaired by Dr. Hernandez Ordered: Ferritin Iron Level Lipid Panel Thyroid Stimulating Hormone TIBC Calculated Vitamin D 25 Hydroxy 6. Left shoulder pain (M25.512: Pain in left shoulder) see above Ordered: Ferritin Iron Level Lipid Panel Thyroid Stimulating Hormone TIBC Calculated Vitamin D 25 Hydroxy 7. Major depressive disorder, recurrent episode, mild (F33.0: Major depressive disorder, recurrent, mild) managed by psych. is taking Cymbalta and fluoxetine Ordered: Ferritin Iron Level Lipid Panel Thyroid Stimulating Hormone TIBC Calculated Vitamin D 25 Hydroxy 8. BMI 24.0-24.9, adult (Z68.24: Body mass index [BMI] 24.0-24.9, adult) BMI education given Ordered: cephalexin, 500 mg = 1 cap(s), Oral, q12hr, # 20 cap(s), Refills(s) 0, Pharmacy: [facility], 172.6, cm, 08/17/23 15:17:00 EDT, Height/Length Dosing, 73.7, kg, 08/17/23 15:17:00 EDT, Weight Dosing Follow-up No qualifying data available Problem List/Past Medical History Ongoing Acute stress disorder ADHD BMI 24.0-24.9, adult BMI 25.0-25.9,adult Breast cancer screening Cigarette nicotine dependence with nicotine-induced disorder Colon cancer screening Degeneration of cervical intervertebral disc Depression with anxiety Derangement of knee Diverticulitis of large intestine EBV (Will-Horne virus) Fatigue GERD (gastroesophageal reflux disease) Left shoulder pain Low hemoglobin Major depressive disorder, recurrent episode, mild Migraine Neck pain Physical exam Pre-op exam Rib fractures Sciatica Screening for hyperlipidemia Skin infection Supraspinatus tendon rupture Historical No qualifying data Procedure/Surgical History Tonsillectomy and adenoidectomy (06/2001), Surgery. Medications acyclovir 400 mg Tab, 400 mg= 1 tab(s), Oral, BID Adderall 30 mg oral tablet, 30 mg= 1 tab(s), Oral, BID Advair Diskus 500 mcg-50 mcg inhalation powder, See Instructions Albuterol (Eqv-ProAir HFA) 90 mcg/inh inhalation aerosol, Inhalation, q6hr baclofen 10 mg Tab, 10 mg= 1 tab(s), Oral, TID Cymbalta 60 mg Cap-DR, 60 mg, Oral, BID diclofenac potassium 25 mg oral tablet, Oral, BID dicyclomine 10 mg Cap, 10 mg= 1 cap(s), Oral, QID FLUoxetine 20 mg Cap, 40 mg= 2 cap(s), Oral, Daily lansoprazole 30 mg Cap-DR, 30 mg= 1 cap(s), Oral, Daily LORazepam 0.5 mg Tab, 0.5 mg= 1 tab(s), Oral, BID, Not taking Nurtec ODT 75 mg oral tablet, disintegrating, See Instructions promethazine 25 mg Tab, See Instructions TraMADol (Eqv-Ultram ER) 300 mg/24 hours oral tablet, extended release, 300 mg= 1 tab(s), Oral, Daily Allergies Moderna COVID-19 (6m-5y) Bivalent Booster Vaccine PF (Unknown) flu vaccines (Unknown) Dilaudid (Unknown) codeine (Unknown) celecoxib (Unknown) sulfa drugs (Unknown) Social History Tobacco 5-9 cigarettes (between 1/4 to 1/2 pack)/day in last 30 days Tobacco Use:. Cigarettes, Vaping, Ready to change: No. Household tobacco concerns: No. Yes, 06/15/2024 Family History Dementia: Mother. Hypertension: Mother. Immunizations Vaccine Date Status SARS-CoV-2 (COVID-19) mRNA-1273 vaccine 03/20/2020 Recorded SARS-CoV-2 (COVID-19) mRNA-1273 vaccine 02/21/2020 Recorded measles/mumps/rubella virus vaccine 09/06/1996 Recorded Td(adult) unspecified formulation 08/28/1996 Recorded Result Comment: Electronical ly Signed By: Jennifer Heath\.br\Date and Time Signed: 06/15/24 15:19 EDT PRE-VISIT PLANNING Observed: 06/14/2024 5:24 PM Status: C Source: [facility] Pre-Visit Planning From: Marilyn Rivera To: Jennifer Heath; Sent: 06/14/2024 17:24:42 EDT Subject: Pre-Visit Planning Due Date/Time: 06/14/2024 17:24:00 EDT Caller Name: MIROSLAVA IRENE; Caller Number: , Donny Rodriguez. During a pre-visit planning chart review, I noted the following documentation in the medical record: Current Problem List: Acute stress disorder and Depression with anxiety ( Current Medication List: duloxetine, fluoxetine, and lorazepam. 05/31/2023 Office Visit Note: Depression with anxiety (F41.8: Other specified anxiety disorders) The patient states that she follows a neurologist for this condition and is stable on her current medication regimen. *No PHQ-9 Score located in [employer]. Based on your medical judgment, can you please clarify which, if any, of the following conditions are present? I can update the Chronic Problem List with your response if you would like. Major Depressive Disorder, Single Episode ??? Major depressive disorder, single episode, mild ??? Major depressive disorder, single episode, moderate ??? Major depressive disorder, single episode, severe without mention of psychotic behavior ??? Major depressive disorder, single episode, severe specified as with psychotic behavior ??? Major depressive disorder, single episode, in partial remission ??? Major depressive disorder, single episode in full remission Major Depressive Disorder, Recurrent ??? Major depressive disorder, recurrent, mild ??? Major depressive disorder, recurrent, moderate ??? Major depressive disorder, recurrent, severe without mention of psychotic behavior ??? Major depressive disorder, recurrent, severe specified as with psychotic behavior ??? Major depressive disorder, recurrent, in partial remission ??? Major depressive disorder, recurrent, in full remission -Other (Please Specify): In responding to this request, please exercise your independent professional judgement. The fact that a question is asked does not imply that any particular answer is desired or expected. If you have any questions, please feel free to contact me at extension [phone]. Thank you! Marilyn Rivera LPN Clinical Case Maker [place] [id number] Extension: [phone] [email or web address] From: Jennifer Heath To: Marilyn Rievra; Sent: 06/15/2024 09:46:18 EDT Subject: RE: Pre-Visit Planning Caller Name: MIROSLAVA IRENE; Caller Number: Shante , major depressive disorder recurrent mild COMPLETE BLOOD COUNT W AUTO DIFFERENTIAL PANEL Collected: 06/12/2024 2:36 PM Status: F Source: [facility] TYPE CODE TESTS RESULT OUT OF RANGE REFERENCE UNITS LAB 6690-2(LOINC) Leukocytes 7.7 4.4-11.3 x10*3/ uL LAB 24031-2(LOINC ) Erythrocytes.nuc leated/100 leukocytes 0.0 0.0-0.0 /100 WBCs LAB 789-8(LOINC) Erythrocytes 3.71 Low 4.00-5.20 x10* 6/uL LAB 718-7(LOINC) Hemoglobin 11.3 Low 12.0-16.0 g/dL LAB 4544-3(LOINC) Hematocrit 35.6 Low 36.0-46.0 % LAB 787-2(LOINC) Erythrocyte mean corpuscular volume 96 80-100 fL LAB 785-6(LOINC) Erythrocyte mean corpuscular hemoglobin 30.5 26.0-34.0 pg LAB 786-4(LOINC) Erythrocyte mean corpuscular hemoglobin concentration 31.7 Low 32.0-36.0 g/dL LAB 788-0(LOINC) Erythrocyte distribution width 14.1 11.5-14.5 % LAB 777-3(LOINC) Platelets 376 150-450 x10*3/uL LAB 770-8(LOINC) Neutrophils/100 leukocytes 65.1 40.0-80.0 % LAB 82073-1(LOINC ) Granulocytes.imm ature/100 leukocytes 0.4 0.0-0.9 % Result Comment: Immature Gra nulocyte Count (IG) includes promyelocytes, myelocytes and metamyelocytes but does not include bands. Percent differential counts (%) should be interpreted in the context of the absolute cell counts (cells/UL). LAB 736-9(LOINC) Lymphocytes/100 leukocytes 26.5 13.0-44.0 % LAB 5905-5(LOINC) Monocytes/100 leukocytes 6.2 2.0-10.0 % LAB 713-8(LOINC) Eosinophils/100 leukocytes 1.3 0.0-6.0 % LAB 706-2(LOINC) Basophils/100 leukocytes 0.5 0.0-2.0 % LAB 751-8(LOINC) Neutrophils 5.04 1.20-7.70 x10*3 /uL Result Comment: Percent diff erential counts (%) should be interpreted in the context of the absolute cell counts (cells/uL). LAB 14928-7(LOINC ) Granulocytes.imm ature 0.03 0.00-0.70 x10*3/uL LAB 731-0(LOINC) Lymphocytes 2.05 1.20-4.80 x10*3 /uL LAB 742-7(LOINC) Monocytes 0.48 0.10-1.00 x10*3/u L LAB 711-2(LOINC) Eosinophils 0.10 0.00-0.70 x10*3 /uL LAB 704-7(LOINC) Basophils 0.04 0.00-0.10 x10*3/u L Performed By: #### [id number] # ### KEVIN RUANO ([id number]) [facility] ([facility]) [address] [place] [id number] COAGULATION TISSUE FACTOR INDUCED Collected: 06/12/2024 2:36 PM Status: F Source: [facility] TYPE CODE TESTS RESULT OUT OF RANGE REFERENCE UNITS LAB 5902-2(LOINC) Coagulation tissue factor induced 10.3 9.8-12.4 seconds LAB 6301-6(LOINC) Coagulation tissue factor induced.INR 0.9 0.9-1.1 NA Performed By: #### 5902-2 ## ## KEVIN RUANO ([id number]) [facility] ([facility]) [address] [place] [id number] COMPREHENSIVE METABOLIC 2000 PANEL Collected: 06/12/2024 2:36 PM Status: F Source: [facility] TYPE CODE TESTS RESULT OUT OF RANGE REFERENCE UNITS LAB 2345-7(LOINC) Glucose 78 74-99 mg/dL LAB 2951-2(LOINC) Sodium 140 136-145 mmol/L LAB 2823-3(LOINC) Potassium 4.2 3.5-5.3 mmol/L LAB 2075-0(LOINC) Chloride 113 High 98-107 mmol/L LAB 2027-9(LOINC) Carbon dioxide 22 21-32 mmo l/L LAB 34658-0(LOINC ) Anion gap 9 Low 10-20 mmol/L LAB 3094-0(LOINC) Urea nitrogen 18 6-23 mg/d L LAB 2160-0(LOINC) Creatinine 0.69 0.50-1.05 mg/dL LAB 28387-5(LOINC ) Glomerular filtration rate/1.73 sq M.predicted >90 >60 mL/min/ 1.73m*2 Result Comment: Calculations of estimated GFR are performed using the 2020 CKD- EPI Study Refit equation without the race variable for the IDMS-Traceable creatinine methods. https://jasn.asnjournals.org/content//ASN.4517659999 LAB 95768-0(LOINC ) Calcium 9.0 8.6-10.3 mg/dL LAB 95760-7(LOINC ) Albumin 3.8 3.4-5.0 g/dL LAB 6768-6(LOINC) Alkaline phosphatase 55 33-136 U/L LAB 2885-2(LOINC) Protein 5.6 Low 6.4-8.2 g/dL LAB 56107-0(LOINC ) Aspartate aminotransferase 13 9-39 U/L LAB 1975-2(LOINC) Bilirubin 0.2 0.0-1.2 mg/dL LAB 1743-4(LOINC) Alanine aminotransferase 10 7-45 U/L Result Comment: Patients tatiana ated with Sulfasalazine may generate falsely decreased results for ALT. Performed By: #### 69315-0 # ### KEVIN RUANO ([id number]) [facility] ([facility]) [address] [place] [id number] MR CERVICAL SPINE WO CONTRAST Observed: 05/16/2024 1:46 PM Status: F Source: [facility] EPIC TITLE OF EXAM: MR CERVICAL S PINE WO CONTRAST REASON FOR EXAM: Chronic neck pain since fall down stairs in 2022, radiculopathy bilateral arms, limited range of motion TECHNIQUE: Multisequence, multiplanar MRI of the cervical spine COMPARISON: Cervical spine MRI 07/16/2023 FINDINGS: General findings: There are 7 nonrib-bearing cervical vertebrae. Unchanged mild loss of C5 and C6 vertebral body height without associated signal abnormality. Anterolisthesis of C3 on C4 and C4 on C5, approximately 2 mm at these levels. Craniocervical and atlantoaxial relationships: Anatomic. Marrow: Normal. Spinal canal: No mass. Normal cord signal and caliber. Paraspinal muscles and visualized soft tissues: Normal. Degenerative findings: C1-C2: No significant degenerative changes. No spinal canal or neural foraminal stenosis. C2-3: Moderate to severe left facet osteoarthrosis. Mild to moderate left neural foraminal stenosis. No significant right foraminal or spinal canal narrowing. C3-4: Aforementioned listhesis. Severe left and mild to moderate right facet osteoarthrosis. Mild to moderate left neural foraminal stenosis. No significant right foraminal or spinal canal narrowing. C4-5: Mild degenerative disc disease with small broad-based disc bulge. Uncovertebral proliferation. Moderate left and mild to moderate right facet osteoarthrosis. Moderate to severe left and moderate right neural foraminal stenosis. Mild spinal canal narrowing. C5-6: Anterior endplate proliferation. Mild to moderate degenerative disc disease with reduced intervertebral space. Small broad-based disc bulge. Uncovertebral proliferation. Mild right facet osteoarthrosis. Moderate left and mild to moderate right neural foraminal and moderate spinal canal stenosis. C6-7: Anterior endplate proliferation. Mild-moderate degenerative disc disease with reduced intervertebral space. Broad-based disc bulge. Uncovertebral proliferation. Moderate left and mild to moderate right neural foraminal stenosis. Moderate spinal canal narrowing. C7-T1: No significant degenerative changes. No spinal canal or neural foraminal stenosis. IMPRESSION: 1. No acute fracture. Unchanged mild loss of C5 and C6 vertebral body height without associated signal abnormality. Possibly reflecting remote trauma or degenerative height loss. 2. C3-4 and C4-5 listhesis, 2 mm. 3. Degenerative changes as detailed, most significantly contributing to neural foraminal stenosis favored to moderate to severe on the left at C4-5, moderate on the left at C5-6 and on the left at C6-7. Spinal canal stenosis is greatest at C5-6 and C6-7, moderate. DICTATED ON: 05/16/2024 1:54 PM This report has been electronically signed in approved by the interpreting radiologist. MR SHOULDER LEFT WO IV CONTRAST Observed: 05/01/2024 10:01 AM Status: F Source: [facility] Interpreted By: Ros Nichole, STUDY: MRI of the left shoulder with out IV contrast INDICATION: Signs/Symptoms:pain COMPARISON: MR arthrogram of the left shoulder dated 07/07/2023.. ACCESSION NUMBER(S): [id number] ORDERING CLINICIAN: ROBYN HERNANDEZ TECHNIQUE: Multiplanar multisequence MRI of the left shoulder was performed without intravenous contrast. FINDINGS: Acromioclavicular Joint: Normal acromioclavicular joint. No evidence for abnormal increased fluid in the subacromial bursa. Biceps Tendon: The intra and extra articular portion of the biceps tendon are within normal limits. Rotator Cuff: There is mild thickening with increased intermediate signal noted of the supraspinatus compatible with mild tendinosis. No supraspinatus tear. Infraspinatus tendon is within normal limits. Teres minor and subscapularis tendons are within normal limits. Muscles: Normal signal intensity and volume. No evidence of muscular edema or atrophy. Labrum: There is chronic degenerative tearing of the superior and anterior glenoid labrum with blunting and truncation. Articular Cartilage: The articular cartilage of the glenoid and humeral head are intact. Bones: The marrow signal of the humeral head is within normal limits. No evidence acute fracture or contusion. Nerves: No evidence of mass effect in the region of the quadrilateral space or suprascapular nerve. Other: There is thickening of the inferior glenohumeral joint capsule. IMPRESSION: 1. Mild supraspinatus tendinosis without tear. 2. 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 3. Thickening of the inferior glenohumeral joint capsule which can be associated with adhesive capsulitis MACRO: None. Signed by: Noelle Nichole 05/01/2024 11:15 AM Dictation workstation: [id number] MR BRAIN W AND WO CONTRAST (ROUTINE) Observed: 01/10/2024 3:00 PM Status: F Source: [facility] EXAM: MRI Brain with and wit hout Contrast (Routine). REASON FOR EXAM: Worsening chronic memory loss, migraines, vertigo, dizziness. TECHNICAL: Multiplanar T1, fast spin-echo, FLAIR, diffusion and gradient echo sequences are performed through the brain. Contrast: Vueway 7 mL IV COMPARISON: 12/09/2022 FINDINGS: Ventricles: Normal in size and configuration. No mass or mass effect is apparent. Cerebrum: Multiple globular areas of T2 and FLAIR signal are present throughout the periventricular and juxtacortical white matter bilaterally and symmetrically. When carefully compared with prior study, appearance, severity and extent are felt to be unchanged. Diffusion/Gradient Echo:No diffusion restriction is apparent. Gradient Echo appearance is unremarkable. Extra-axial space: No fluid collections are identifiedl. Posterior Fossa: Cerebellum appears intact. No signal abnormality is apparent. IAC regions are unremarkable. Sinuses: Visualized sinuses appear clear. 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 Skull: Unremarkable. Enhancement: No abnormal enhancement is present. There is expected venous dural sinus enhancement. IMPRESSION: Extensive signal abnormality in the periventricular and juxtacortical zones, similar to the prior exam. Although not specific, appearance could suggest a demyelinating process such as MS. Microangiopathic changes, postinflammatory changes, toxic insult or autoimmune disorders could produce a similar appearance, however. *This report is generated using voice recognition reporting (NoteSick). On occasion NoteSick erroneously drops words from the report or replaces the spoken word with similar sounding words. Please call with any questions/concerns regarding this report.* Dictated and transcribed 01/10/2024/tm This report has been electronically signed and approved by the interpreting radiologist. ALLERGIES DATE TYPE / CODE NAME / CODE REACTION SEVERITY SOURCE 07/31/2022 Drug Class/689842 003(SNOMED CT) SULFA (SULFONAMIDE ANTIBIOTICS) Other [facility] 07/31/2022 DRUG INGREDI/4195 43612(SNOMED CT) CODEINE Other [facility] 07/31/2022 DRUG INGREDI/4195 92723(SNOMED CT) HYDROMORPHONE Other [facility] 07/10/2022 DRUG INGREDI/4195 62563(SNOMED CT) CELECOXIB Unknown [facility] 07/10/2022 DRUG INGREDI/4195 41466(SNOMED CT) COVID-19 VACCINE, AD26.COV2.S (FELA) Unknown [facility] 07/10/2022 DRUG INGREDI/4195 27623(SNOMED CT) VARENICLINE Unknown [facility] /810278690 (SNOMED CT) codeine 300306556 Mild (Qualifier Value) [facility] /078389312 (SNOMED CT) celecoxib 572009669 [facility] /351575002 (SNOMED CT) sulfa drugs 697634101 [facility] /343286975 (SNOMED CT) flu vaccines 731570841 Severe (Severity Modifier) (Qualifier Value) [facility] YAIR170326439 (SNOMED CT) Dilaudid 601648956 Mild (Qualifier Value) [facility] Megan ASTUDILLO/061241976 (SNOMED CT) Moderna COVID-19 (6m-5y) Bivalent Booster Vaccine 713405133 Severe (Severity Modifier) (Qualifier Value) [facility] ENCOUNTERS ADMIT/DISCHARGE ACCOUNT NUMBER ADMITTING ENCOUNTER CLASS LOCATION SOURCE 10/26/2024/10/27/19 [id number] Ambulatory Building:NO MS NEURO [facility] EPIC 10/13/2024/10/14/19 [id number] Ambulatory FT [place]: CD:[id number] [facility] 10/12/2024/10/13/19 [id number] Ambulatory FT [facility] [place]:FT FM [facility] 10/04/2024/10/05/19 [id number] Ambulatory Building:NO MS NEURO [facility] EPIC 08/25/2024/08/26/19 [id number] Jennifer Piper Ambulatory FTMCBuildin g:FT [facility] 08/25/2024/08/26/19 25 [id number] Ambulatory FT [facility] [place]:FT [place]: CD:[id number] 79 [facility] 08/15/2024/08/16/19 25 [id number] Ambulatory FT [facility] [place]:FT FM [facility] 08/14/2024/08/15/19 25 [id number] Ambulatory Building:[address] Ambulatory 08/02/2024/08/03/19 [id number] Ambulatory FT [facility] [place]:FT FM [facility] 07/26/2024/07/27/19 25 [id number] Ambulatory Building:NO MS NEURO [facility] EPIC 07/24/2024/07/25/19 25 [id number] Ambulatory FT [facility] [place]:FT FM [facility] 07/06/2024/07/07/19 [id number] Ambulatory Building:NO MS NEURO [facility] EPIC 06/15/2024/06/16/19 [id number] Miguel Meyer Ambulatory FTMCBuildin g:FT LAB [facility] 06/15/2024/06/16/19 [id number] Feliz, Jennifer L Ambulatory FTMCBuildin g:FT LAB [facility] 06/15/2024/06/16/19 [id number] Ambulatory FT CARITO Lorenz lding:FT CARITO Ribeiro m: CD:[id number] 79 [facility] 06/12/2024/06/13/19 [id number] Ambulatory Building:[facility] 06/12/2024/06/13/19 [id number] Ambulatory Building:[facility] 06/12/2024/06/13/19 [id number] Ambulatory Building:DO [address] Ambulatory 06/12/2024/06/13/19 [id number] Ambulatory Building:DO [address] Ambulatory 05/16/2024/05/17/19 25 [id number] Ambulatory Building:FN R MR [facility] EPIC 05/10/2024/05/11/19 25 [id number] Ambulatory Building:NO MS NEURO [facility] EPIC 05/08/2024/05/09/19 25 [id number] Ambulatory Building:DO [address] Ambulatory 05/01/2024/05/02/19 25 [id number] Ambulatory Building:NO MS NEURO [facility] EPIC 05/01/2024/05/02/19 25 [id number] Ambulatory Building:[address] 04/10/2024/04/11/19 25 [id number] Ambulatory Building:DO [address] Ambulatory 03/30/2024/03/30/19 25 [id number] Ambulatory Building:NO MS NEURO [facility] EPIC 02/24/2024/02/23/19 25 [id number] Ambulatory Building:NO MS NEURO [facility] EPIC 01/12/2024/01/12/20 24 [id number] Ambulatory Building:NO MS NEURO [facility] EPIC 01/10/2024/01/10/20 24 [id number] Ambulatory Building:FN R MR [facility] EPIC 12/16/2023/12/16/19 24 [id number] Ambulatory Building:NO MS NEURO [facility] EPIC 11/25/2023/11/25/19 24 [id number] Ambulatory Building:NO MS NEURO [facility] EPIC 11/15/2023/11/15/19 24 [id number] Ambulatory Building:[address] Ambulatory PAYERS ENCOUNTER GUARANTOR PAYER SUBSCRIBER SOURCE 10/26/2024 MIROSLAVA Richards ABISAI: [id number] [place] [address]Ilt: (HP) [place] Number: [id number] Date:2022-12-09 MIROSLAVA JEFFERSONDEVON: [id number] [place] [address] [facility] EPIC 10/26/2024 Secondary Insurance:UNITED HEALTHCARE MEDICAREPolicy Number: [id number] Date:2023-03-11 MIROSLAVA JEFFERSONDEVON: [id number] [place] [address] [facility] EPIC 10/13/2024 MIROSLAVA VLADB: [address] HWYTel: ~ ~(4 1 (HP) Primary Insurance:[facility]Policy Number: [id number] Date:5049-69-80UX [address] [place] [address]YZ: [phone] [facility] 10/13/2024 Secondary Insurance:MedicaidPoli cy Number: [id number] Date:4695-45-33SY [address], [place] [address]OR: [facility] 10/12/2024 MIROSLAVA JEFFERSONNORYB: [id number] [address]Tel: ~ ~(4 1 (HP) Primary Insurance:[facility]ENTERPolicy Number: [id number] Date:7220-10-16MN [address] [place] [address]JM: [phone] MIROSLAVA [facility] 10/12/2024 Secondary Insurance:MedicaidPoli cy Number: [id number] Date:0407-24-19IC [address], [place] [address]OD: [facility] 10/04/2024 MIROSLAVA CHUB: [id number] [place] [address]Ctd: (HP) [place] Insurance[place]: [id number] Date:2022-12-09 MIROSLAVA CHUB: [id number] [place] [address] [facility] 10/04/2024 Secondary Insurance:UNITED HEALTHCARE MEDICAREPolicy Number: [id number] Date:2023-03-11 MIROSLAVA CHUB: [id number] [place] [address] [facility] EPIC 08/25/2024 MIROSLAVA IRENEB: [address]YTel: ~ ~(4 1 (HP) Primary Insurance:[facility]ENTERPolicy Number: [id number] Date:3095-83-38LP [address] [address]XI: [phone] [facility] 08/25/2024 Secondary Insurance:MedicaidPoli cy Number: [id number] Date:2871-27-96TC [address]fiw[place]qzAT[place], [place] [address]WV: [facility] 08/25/2024 MIROSLAVA IRENEDOB: [address]Tel: ~ ~(4 1 (HP) Primary Insurance:[facility]ENTERPolicy Number: [id number] Date:4198-06-51NM [address] [place] [address]SE: [phone] [facility] 08/25/2024 Secondary Insurance:MedicaidPoli cy Number: [id number] Date:1643-24-95BI [address]CpgelprbATLANTA, [place] [address]IC: [facility] 08/15/2024 MIROSLAVA JEFFERSONYOANNADOB: [address]Tel: ~ ~(4 1 (HP) Primary Insurance:[facility] CENTERPolicy Number: [id number] Date:4214-66-52JN [address] [address]AX: [phone] [facility] 08/15/2024 Secondary Insurance:MedicaidPoli cy Number: [id number] Date:0595-20-06FW [address], [place] [address]QA: [facility] 08/14/2024 MIRSOLAVA JEFFERSONNORYB: [address] [place] [address]Spo: (HP) [facility] COMPLETEPolicy Number: [id number] Date:2023-03-11 MIROSLAVA JEFFERSONNORYB: [id number] [place], [place] [address]Owt: (HP) [facility] 08/14/2024 Secondary Insurance:MEDICAIDPoli cy Number: [id number] Date:2023-06-09 MIROSLAVA JEFFERSONNORYB: [id number] [place], [place] [address]Nzv: (HP) [facility] 08/02/2024 MIROSLAVA JEFFERSONYOANNADOB: [address]Tel: ~ ~(4 1 (HP) Primary Insurance:[facility]ENTERPolicy Number: [id number] Date:6072-03-67TX [address] [place] [address]SJ: [phone] [facility] 08/02/2024 Secondary Insurance:MedicaidPoli cy Number: [id number] Date:8909-61-86OC [address]HkcipxoaATLANTA, [place] [address]XO: [facility] 07/26/2024 MIROSLAVA JEFFERSONARDDOB: [id number] [place] [address]Emt: (HP) [place] Insurance:[place]ID [place] Number: [id number] Date:2022-12-09 MIROSLAVA JEFFERSONYOANNADOB: [id number] [place] [address] [facility] 07/26/2024 Secondary Insurance:UNITED HEALTHCARE MEDICAREPolicy Number: [id number] Date:2023-03-11 MIROSLAVA JEFFERSONYOANNADOB: [id number] [place] [address] [facility] 07/24/2024 MIROSLAVA IRENEDOB: [address]Tel: ~ ~(4 1 (HP) Primary Insurance:[facility]ENTERPolicy Number: [id number] Date:2848-33-53ZV [address] [address]EH: [phone] [facility] 07/24/2024 Secondary Insurance:MedicaidPoli cy Number: [id number] Date:5495-58-99TE [address]BgqkuhcaATLANTA, [place] [address]CS: [facility] 07/06/2024 MIROSLAVA JEFFERSONYOANNADOB: [id number] [place] [address]Bpk: (HP) [place] Insurance:[place] Number: [id number] Date:2022-12-09 MIROSLAVA BARONE: [id number] [place] [address] [facility] 07/06/2024 Secondary Insurance:UNITED HEALTHCARE MEDICAREPolicy Number: [id number] Date:2023-03-11 MIROSLAVA CHUB: [id number] [place] [address] [facility] 06/15/2024 MIROSLAVA IRENEDOB: [address]Tel: ~ ~(4 1 (HP) Primary Insurance:[facility] CENTERPolicy Number: [id number] Date:2512-69-82SD[address] [address]UD: [phone] [facility] 06/15/2024 Secondary Insurance:MedicaidPoli cy Number: [id number] Date:9772-86-78KT [address]Qep[place], [place] [address]EK: [facility] 06/15/2024 MIROSLAVA JEFFERSONYOANNADOB: [address]Tel: ~ ~(4 1 (HP) Primary Insurance:[facility] CENTERPoly Number: [id number] Date:7494-80-07CO[address] [address]CV: [phone] [facility] 06/15/2024 Secondary Insurance:MedicaidPoli cy Number: [id number] Date:9337-66-89BE [address]Hqxwrj[place], [place] [address]JC: [facility] 06/15/2024 [facility] [address]Tel: ~ ~(4 1 (HP) Primary Insurance:[facility] CAREPolicy Number: [id number] Date:8118-24-07SJ [address] [place] [address]OG: [phone] [facility] 06/15/2024 Secondary Insurance:MedicaidPoli cy Number: [id number] Date:8931-87-51GK [address]Szfgs[place]wm, [place] [address]WG: [facility] 06/12/2024 MIROSLAVA JEFFERSONYOANNADOB: [address], [place] [address]Cpb: () Primary Insurance:[facility] DUAL COMPLETEPolicy Number: [id number] Date:2023-03-11 MIROSLAVADONNIE JEFFERSONNORYB: [id number] [place], [place] [address]Ujf: (HP) [facility] 06/12/2024 Secondary Insurance:MEDICAIDPoli cy Number: [id number] Date:2023-06-09 MIROSLAVA WILLYOANNADOB: [id number] [place], [place] [address]Xfv: () [facility] 06/12/2024 MIROSLAVA CHUB: [id number] [address], [place] [address]Zli: (HP) Primary Insurance:[facility] DUAL COMPLETEPolicy Number: [id number] Date:2023-03-11 MIROSLAVA WILLYOANNADOB: [id number], [place] [address]Auh: () [facility] 06/12/2024 Secondary Insurance:MEDICAIDPoli cy Number: [id number] Date:2023-06-09 MIROSLAVA CHUB: [id number], [place] [address]Rln: (HP) [facility] 06/12/2024 MIROSLAVA JEFFERSONNORYB: [address] [place], [place] [address]Dok: (HP) Primary Insurance:[facility] DUAL COMPLETEPolicy Number: [id number] Date:2023-03-11 MIROSLAVA JEFFERSONNORYB: [id number] [place], [place] [address]Tfu: () [facility] 06/12/2024 Secondary Insurance:MEDICAIDPoli cy Number: [id number] Date:2023-06-09 MIROSLAVA VLADB: [id number] [place], [place] [address]Wpy: () [facility] 06/12/2024 MIROSLAVA VLADB: [address] [place], [place] [address]Tvh: () Primary Insurance:[facility] DUAL COMPLETEPolicy Number: [id number] Date:2023-03-11 MIROSLAVA JEFFERSONNORYB: [id number] [place], [place] [address]Jjr: () [facility] 06/12/2024 Secondary Insurance:MEDICAIDPoli cy Number: [id number] Date:2023-06-09 MIROSLAVA VLADB: [id number] [place], [place] [address]Vtl: () [facility] 05/16/2024 MIROSLAVA Richards ABISAI: [place] [address]Kof: (HP) Primary Insurance:[place] Number: [id number] Date:2022-12-09 MIROSLAVA Richards ABISAI: [id number] [place] [address] [facility] 05/16/2024 Secondary Insurance:[facility] MEDICAREPolicy Number: [id number] Date:2023-03-11 MIROSLAVA CHUB: [id number] [place] [address] [facility] 05/10/2024 MIROSLAVA CHUB: [place] [address]Rha: (HP) Primary Insurance:[place]ID [place] Number: [id number] Date:2022-12-09 MIROSLAVA CHUB: [id number] [place] [address] [facility] 05/10/2024 Secondary Insurance:[facility] MEDICAREPolicy Number: [id number] Date:2023-03-11 MIROSLAVA CHUB: [id number] [place] [address] [facility] EP[facility] 05/08/2024 MIROSLAVA IRENEB: [address] [place] [place] [address]Fhn: (HP) Primary Insurance:[facility] DUAL COMPLETEPolicy Number: [id number] Date:2023-03-11 MIROSLAVA JEFFERSONNORYB: [id number] [place], [place] [address]Gff: () [facility] 05/08/2024 Secondary Insurance:MEDICAIDPoli cy Number: [id number] Date:2023-06-09 MIROSLAVA JEFFERSONNORYB: [id number] [place], [place] [address]Bjk: (HP) [facility] 05/01/2024 MIROSLAVA IRENEB: [place] [address]Ltj: (HP) Primary Insurance:[place] Number: [id number] Date:2022-12-09 MIROSLAVA JEFFERSONNORYB: [id number] [place] [address] [facility] 05/01/2024 Secondary Insurance:[facility] MEDICAREPolicy Number: [id number] Date:2023-03-11 MIROSLAVA JEFFERSONNORYB: [id number] [place] [address] [facility] 05/01/2024 MIROSLAVA WILLYOANNADOB: [address] [place], [place] [address]Cvw: () Primary Insurance:[facility] DUAL COMPLETEPolicy Number: [id number] Date:2023-03-11 MIROSLAVA JEFFERSONNORYB: [id number] [place], [place] [address]Bus: () [facility] 05/01/2024 Secondary Insurance:MEDICAIDPoli cy Number: [id number] Date:2023-06-09 MIROSLAVA JEFFERSONNORYB: [id number] [place], [place] [address]Zqw: () [facility] 04/10/2024 MIROSLAVA VLADB: [address] [place] [address]Zcf: () Primary Insurance:[facility] DUAL COMPLETEPolicy Number: [id number] Date:2023-03-11 MIROSLAVA JEFFERSONNORYB: [id number] [place], [place] [address]Mra: () [facility] 04/10/2024 Secondary Insurance:MEDICAIDPoli cy Number: [id number] Date:2023-06-09 MIROSLAVA CHUB: [id number], [place] [address]Chj: (HP) [facility] 03/30/2024 MIROSLAVA IRENEDOB: [place] [address]Eqn: (HP) Primary Insurance:[place] Number: [id number] Date:2022-12-09 MIROSLAVA IRENEDOB: [id number] [place] [address] [facility] EP[facility] 03/30/2024 Secondary Insurance:[facility] MEDICAREPolicy Number: [id number] Date:2023-03-11 MIROSLAVA IRENEDOB: [id number] [place] [address] [facility] EP[facility] 02/24/2024 MIROSLAVA JEFFERSONARDDOB: [place] [address]Ubw: (HP) Primary Insurance:[place] Number: [id number] Date:2022-12-09 MIROSLAVA IRENEDOB: [id number] [place] [address] [facility] EP[facility] 02/24/2024 Secondary Insurance:[facility] MEDICAREPolicy Number: [id number] Date:2023-03-11 MIROSLAVA JEFFERSONARDDOB: [id number] [place] [address] [facility] EP[facility] 01/12/2024 MIROSLAVA JEFFERSONARDDOB: [place] [address]Gyu: (HP) [place] Insurance:[place] Number: [id number] Date:2022-12-09 MIROSLAVA JEFFERSONARDDOB: [id number] [place] [address] [facility] EP[facility] 01/12/2024 Secondary Insurance:[employer] MEDICAREPolicy Number: [id number] Date:2023-03-11 MIROSLAVA Richards WILLARDDOB: [id number] [place] [address] [facility] EP[facility] 01/10/2024 MIROSLAVA Richards WILLARDDOB: [place] [place] [address]Wpt: (HP) Primary Insurance:[place] Number: [id number] Date:2022-12-09 MIROSLAVA JEFFERSONARDDOB: [id number] [place] [address] [facility] EPIC 01/10/2024 Secondary Insurance:UNITED HEALTHCARE MEDICAREPolicy Number: [id number] Date:2023-03-11 MIROSLAVA Richards WILLARDDOB: [id number] [place] [address] [facility] EPIC 12/16/2023 MIROSLAVA JEFFERSONARDDOB: [place] [place] [address]Vmf: (HP) Primary Insurance:[place] Number: [id number] Date:2022-12-09 MIROSLAVA JEFFERSONARDDOB: [id number] [place] [address] [facility] EPIC 12/16/2023 Secondary Insurance:[employer] MEDICAREPolicy Number: [id number] Date:2023-03-11 MIROSLAVA Richards WILLARDDOB: [id number] [place] [address] [facility] EPIC 11/25/2023 MIROSLAVA Richards WILLARDDOB: [place] [address]Glt: (HP) Primary Insurance[place]: [id number] Date:2022-12-09 MIROSLAVA Richards WILLARDDOB: [id number] [place] [address] [facility] EPIC 11/25/2023 Secondary Insurance:[facility] MEDICAREPolicy Number: [id number] Date:2023-03-11 MIROSLAVA Richards VLADB: [id number] [place] [address] [facility] EPIC 11/15/2023 MIROSLAVA BARONE: [address] [place] [address]Tzx: () Primary Insurance:[facility] DUAL COMPLETEPolicy Number: [id number] Date:2023-03-11 MIROSLAVA ABISAI: [id number] [place] [address]Gbv: () [facility] 11/15/2023 Secondary Insurance:MEDICAIDPoli cy Number: [id number] Date:2023-06-09 MIROSLAVA CHUB: [id number] [place], [place] [address]Gju: () [facility]
--- NOTE | 2024-11-06 14:42 | MM_ITS ---
Patient Name: MARCELINO IRENE MR#: [id number] : 1965 Exam Date: 11/06/2024 Ordering Doctor: NELSON ZHU . RADIOLOGY REPORT PROCEDURE: MM TOMOSYNTHESIS SCREENING BI COMPARISON: MM TOMOSYNTHESIS SCREENING BI, 05/28/2023. MG MAMM SCREEN 3D LU CAD, 04/26/2020. MG MAMM LU DIAG W CAD DIG, 01/08/2009. INDICATIONS: Screening Calculator Name NCI Breast Cancer Risk Assessment Tool 5 Year Breast Cancer Risk 1.30% Lifetime Breast Cancer Risk 6.40% Personal Breast Cancer No Personal Ovarian Cancer No Treatments None Family Cancers Brother with rabdomyosarcoma cancer at age ~45. LOCATION: [facility] BREAST COMPOSITION: The breasts are heterogeneously dense, which may obscure small masses. FINDINGS: RIGHT BREAST: No significant suspicious finding. Benign-appearing calcifications are present . LEFT BREAST: No significant suspicious finding. Benign-appearing calcifications are present. DIAGNOSTIC CATEGORY 2--BENIGN FINDING. NO CHANGE FROM COMPARISON. RECOMMENDATIONS: ROUTINE MAMMOGRAM AND CLINICAL EVALUATION IN 12 MONTHS. Dictated by: Raymon Damon MD on 11/07/2024 at 08:34 Approved by: Raymon Damon MD on 11/07/2024 at 08:39
== END 2024-11-06 14:41 | disposition home or self-care (01) ==
LOC: MAMMO 14:40
PROVIDERS: PCP Nurse Practitioner; Visit Provider Nurse Practitioner
DX: Z12.31 Encounter for screening mammogram for malignant neoplasm of breast (principal); F17.200 Nicotine dependence, unspecified, uncomplicated; Z78.0 Asymptomatic menopausal state; Z68.23 Body mass index [BMI] 23.0-23.9, adult; Z80.8 Family history of malignant neoplasm of other organs or systems; M81.0 Age-related osteoporosis without current pathological fracture; M85.88 Other specified disorders of bone density and structure, other site
CPT/HCPCS: 77063; 77067; 77080